=== PATIENT | male | born 1955 | race Caucasian/White ===

== ENCOUNTER → 2017-03-01 | Outpatient (CLI) | payer OTHER ==
[2017-03-01 18:52] LABS: CH 31.4; CHCM 34.2; HCT 39.8 % (39.0-53.0); HDW 2.55; HGB 13.4 gm/dL (13.0-17.5); MCH 31.1 pg (25.0-35.0); MCHC 33.7 g/dL (31.0-37.0); MCV 92.3 fL (80.0-100.0); RBC 4.31 m/uL (4.30-5.90); RDW 14.6 % (11.5-15.5); WBC 5.6 k/uL (3.8-10.6)
[2017-03-01 19:00] LABS: INR 1.2 (<1.2); Prothrombin Time 12.2 sec (9.0-12.0)
[2017-03-01 19:12] LABS: ALT 42 U/L (21-72); AST 30 U/L (17-59); Alkaline Phosphatase 64 U/L (38-126); Anion Gap 8 mmol/L; Blood Urea Nitrogen 34 mg/dL (9-20); Calcium 9.6 mg/dL (8.4-10.2); Carbon Dioxide 24 mmol/L (22-30); Chloride 108 mmol/L (98-107); Cholesterol 159 mg/dL (<200); Glucose 85 mg/dL (74-99); HDL Cholesterol 65 mg/dL (40-60); Iron 43 ug/dL (49-181); Magnesium 1.5 mg/dL (1.6-2.3); Non-African American GFR(MDRD) >60 (>60 ml/min/1.73 sqM); Phosphorus 4.4 mg/dL (2.5-4.5); Sodium 140 mmol/L (137-145); Total Bilirubin 0.4 mg/dL (0.2-1.3); Total Protein 6.5 g/dL (6.3-8.2)
[2017-03-01 19:19] LABS: Potassium 6.1 mmol/L (3.5-5.1)
[2017-03-01 19:20] LABS: % Iron Saturation 11.9 % (20-50); Total Iron Binding Capacity 361 ug/dL (261-462)
[2017-03-01 19:59] LABS: Vitamin B12 747 pg/mL (239-931)
[2017-03-01 20:39] LABS: Hemoglobin A1C 5.4 % (4.2-6.1)
[2017-03-08 18:31] LABS: Selenium 134 mcg/L (63-160)
--- NOTE | 2017-03-25 18:38 | P.PN ---
Progress Note - Text DATE OF SERVICE: 03/01/2017 REASON FOR CONSULTATION: Evaluation for panniculectomy. HISTORY OF PRESENT ILLNESS: Hector Gray is a 62-year-old gentleman who is status post sleeve gastrectomy [place] [address] Meza. His highest weight was 367 pounds. His lowest weight was 197.5. He has now gained weight 227 pounds. For his height of 5 foot 7-1/2 inches, his ideal body weight is 158 pounds. He has maintain 140 pound weight loss. He has gained 30 pounds from his lowest weight. No reports of gastroesophageal reflux disease taking omeprazole. He reports moderate troubles with his pannus despite prescription powders and creams. He avoids greasy food secondary to intolerance. Since he is 5 years out from his procedure, he is evaluating for a panniculectomy. PAST MEDICAL HISTORY: 1. Morbid obesity. 2. Body mass index of 56.8, initial 3. Obstructive sleep apnea. 4. Osteoarthritis of the knees, 5. Hypertensive heart disease. 6. Gastroesophageal reflux disease 7. Vitamin D deficiency. PAST SURGICAL HISTORY: 1. Sleeve gastrectomy, 05/2012. 2. Bilateral hip replacement. HOME MEDICATIONS: 1. Mobic. 2. Omeprazole. 3. Multivitamin. 4. Vitamin D. 5. Calcium. 6. Cetirizine ALLERGIES: 1. Denies. SOCIAL HISTORY: No active tobacco use. FAMILY HISTORY: No family history of ulcerative colitis disease or Crohn's disease. Has family history of colon cancer. REVIEW OF ORGAN SYSTEMS: CONSTITUTIONAL: His highest weight was 367 pounds. His lowest weight was 197.5. He has now gained weight 227 pounds. For his height of 5 foot 7-1/2 inches, his ideal body weight is 158 pounds. He has maintain 140 pound weight loss. He has gained 30 pounds from his lowest weight. Body mass index reduced from 56.8 down to 35.1. HEENT: Denies any active troubles with vision or hearing. No troubles with swallowing. ENDOCRINE: No diabetes. No hypothyroidism. CARDIOVASCULAR: No reports of palpitations or heart attacks or chest pain. RESPIRATORY: Has daytime somnolence including snoring and sleep apnea. No asthma. GI: Denies any bright red blood per rectum or constipation. Does have gastroesophageal reflux disease controlled with medications. MUSCULOSKELETAL: Has lower back pain and joint pain. Has osteoarthritis of the hips and knees. NEURO: No headaches. No seizure disorders. PSYCH: No depression. No suicidal ideation. RHEUMATOLOGIC: No lupus. No rheumatoid arthritis. HEMATOLOGIC: Denies any abnormal bleeding or bruising. No personal history of DVTs. SKIN: No rash except chronic panniculitis. No skin cancer. PHYSICAL EXAM: VITAL SIGNS: Height 5 foot 7.5 inches, weight 227 pounds. BMI 35.1 GENERAL: Well-developed male in no acute distress. HEENT: No scleral icterus. Extraocular movements grossly intact. Hears conversational speech. No nasal drainage. NECK: Supple without lymphadenopathy. CHEST: Nonlabored respirations with equal bilateral excursions. CARDIOVASCULAR: Regular rate. Distal 2+ pulses. ABDOMEN: Obese, soft, nontender, nondistended. Pannus hangs of the pubis by 6 cm. Weight of pannus between 10-15 pounds. Hyperemia consistent with panniculitis. MUSCULOSKELETAL: No clubbing, cyanosis, or edema. Gross strength 5/5 distal lower extremities. NEURO: No focal or lateralizing signs. Cranial nerves 2 through 12 grossly within normal limits. PSYCH: Appropriate affect. Alert and oriented to person, place and time. SKIN: Good skin turgor. Well perfused. ASSESSMENT: 1. Morbid obesity due to excess calories. 2. Body mass index of 56.8 down to 35.1. 3. Obstructive sleep apnea. 4. Osteoarthritis of the bilateral knees. 5. Status post sleeve gastrectomy. 6. Status post massive weight loss, 140 pounds. 7. Panniculitis. 8. Fatty food intolerance. PLAN: 1. Recommend full bariatric panel as he is more than 1 year out from his procedure. 2. Recommend correction of nutritional deficiencies prior to panniculectomy. 3. He has fatty food intolerance including symptoms highly suspicious for cholecystitis. Recommend right upper quadrant ultrasound. 4. Benefits and risks of panniculectomy including bleeding, infection, flap failure, cosmetic deformity, postop seromas, chronic pain, need for additional surgeries reviewed in detail. A panniculectomy fold was dispensed. 5. DVT prophylaxis. 6. Antibiotic prophylaxis. 7. Anticipated skin removal between 10-15 pounds hence require inpatient hospitalization anticipated for 2 nights. Thank you for this consultation. ADDENDUM: Elevated potassium. Recommend repeat. Recommend correction of our including magnesium. Laboratory Last Values WBC 5.6 k/uL (3.8-10.6) 03/01/17 18:10 RBC 4.31 m/uL (4.30-5.90) 03/01/17 18:10 Hgb 13.4 gm/dL (13.0-17.5) 03/01/17 18:10 Hct 39.8 % (39.0-53.0) 03/01/17 18:10 MCV 92.3 fL (80.0-100.0) 03/01/17 18:10 MCH 31.1 pg (25.0-35.0) 03/01/17 18:10 MCHC 33.7 g/dL (31.0-37.0) 03/01/17 18:10 RDW 14.6 % (11.5-15.5) 03/01/17 18:10 Plt Count 208 k/uL (150-450) 03/01/17 18:10 PT 12.2 sec (9.0-12.0) H 03/01/17 18:10 INR 1.2 (<1.2) H 03/01/17 18:10 APTT 23.0 sec (22.0-30.0) 03/01/17 18:10 Sodium 140 mmol/L (137-145) 03/01/17 18:10 Potassium 6.1 mmol/L (3.5-5.1) H 03/01/17 18:10 Chloride 108 mmol/L (98-107) H 03/01/17 18:10 Carbon Dioxide 24 mmol/L (22-30) 03/01/17 18:10 Anion Gap 8 mmol/L 03/01/17 18:10 BUN 34 mg/dL (9-20) H 03/01/17 18:10 Creatinine 0.80 mg/dL (0.66-1.25) 03/01/17 18:10 Est GFR (MDRD) Af Amer >60 (>60 ml/min/1.73 sqM) 03/01/17 18:10 Est GFR (MDRD) Non-Af >60 (>60 ml/min/1.73 sqM) 03/01/17 18:10 Glucose 85 mg/dL (74-99) 03/01/17 18:[address] Glu mg/dL 108 mg/dL 03/01/17 18:10 Hemoglobin A1c 5.4 % (4.2-6.1) 03/01/17 18:10 Calcium 9.6 mg/dL (8.4-10.2) 03/01/17 18:10 Phosphorus 4.4 mg/dL (2.5-4.5) 03/01/17 18:10 Magnesium 1.5 mg/dL (1.6-2.3) L 03/01/17 18:10 Iron 43 ug/dL (49-181) L 03/01/17 18:10 TIBC 361 ug/dL (261-462) 03/01/17 18:10 % Saturation 11.9 % (20-50) L 03/01/17 18:10 Ferritin 24.0 ng/mL (22.0-322.0) 03/01/17 18:10 Total Bilirubin 0.4 mg/dL (0.2-1.3) 03/01/17 18:10 AST 30 U/L (17-59) 03/01/17 18:10 ALT 42 U/L (21-72) 03/01/17 18:10 Alkaline Phosphatase 64 U/L (38-126) 03/01/17 18:10 Total Protein 6.5 g/dL (6.3-8.2) 03/01/17 18:10 Albumin 4.0 g/dL (3.5-5.0) 03/01/17 18:10 Prealbumin 28.0 mg/dL (18.0-42.0) 03/01/17 18:10 Triglycerides 54 mg/dL (<150) 03/01/17 18:10 Cholesterol 159 mg/dL (<200) 03/01/17 18:10 LDL Cholesterol, Calc 83 mg/dL (0-99) 03/01/17 18:10 HDL Cholesterol 65 mg/dL (40-60) H 03/01/17 18:10 Vitamin A 75 ug/dL (38-106) 03/01/17 18:10 Vitamin B1 96 ug/L (38-122) 03/01/17 18:10 Vitamin B12 747 pg/mL (239-931) 03/01/17 18:10 Vitamin D 25-Hydroxy 66.0 ng/mL (30.0-100.0) 03/01/17 18:10 Folate 16.1 ng/mL 03/01/17 18:10 TSH 0.562 mIU/L (0.465-4.680) 03/01/17 18:10 PTH Intact 47.7 pg/mL (14.0-72.0) 03/01/17 18:10 Copper 1003 ug/L (665-1480) 03/01/17 18:10 Selenium 134 mcg/L (63-160) 03/01/17 18:10 Zinc 90 ug/dL (60-130) 03/01/17 18:10
== END | disposition home or self-care (01) ==
LOC: BARWHC3 15:29
PROVIDERS: ATTEND Surgery Plastic and Reconstructive Surgery
DX: Z09 Encounter for follow-up examination after completed treatment for conditions other than malignant neoplasm (principal); E66.01 Morbid (severe) obesity due to excess calories; Z68.35 Body mass index [BMI] 35.0-35.9, adult; G47.33 Obstructive sleep apnea (adult) (pediatric); M17.0 Bilateral primary osteoarthritis of knee; M79.3 Panniculitis, unspecified; E55.9 Vitamin D deficiency, unspecified; K21.9 Gastro-esophageal reflux disease without esophagitis; Z79.1 Long term (current) use of non-steroidal anti-inflammatories (NSAID); Z79.899 Other long term (current) drug therapy; Z98.890 Other specified postprocedural states; Z98.84 Bariatric surgery status
CPT/HCPCS: 84255; 84134; 84425; 80061; 80053; 82607; 82728; 83036; 82525; 82746; 83540; 83550; 83735; 84100; 84443; 84590; 84630; 85027; 85610; 85730; 82306; 83970; G0463; 99211

== ENCOUNTER → 2017-03-06 | Outpatient (CLI) | payer OTHER ==
[2017-03-06 17:49] LABS: ALT 33 U/L (21-72); AST 23 U/L (17-59); Alkaline Phosphatase 66 U/L (38-126); Anion Gap 8 mmol/L; Blood Urea Nitrogen 36 mg/dL (9-20); Calcium 9.5 mg/dL (8.4-10.2); Carbon Dioxide 23 mmol/L (22-30); Chloride 110 mmol/L (98-107); Glucose 130 mg/dL (74-99); Non-African American GFR(MDRD) >60 (>60 ml/min/1.73 sqM); Potassium 4.6 mmol/L (3.5-5.1); Sodium 141 mmol/L (137-145); Total Bilirubin 0.2 mg/dL (0.2-1.3); Total Protein 6.3 g/dL (6.3-8.2)
== END | disposition home or self-care (01) ==
LOC: LABWHC1 17:03
PROVIDERS: ATTEND Surgery Plastic and Reconstructive Surgery
DX: E66.01 Morbid (severe) obesity due to excess calories (principal)
CPT/HCPCS: 36415; 80053

== ENCOUNTER 2017-03-16 07:36 | Day surgery (SDC) | payer OTHER ==
--- NOTE | 2017-03-16 06:08 | P.GSHP ---
History of Present Illness H&P Date: 03/16/17 CHIEF COMPLAINT: GERD HISTORY OF PRESENT ILLNESS: The patient is a 62-year-old male who presents reports gastroesophageal reflux disease. Upper endoscopy was offered for further evaluation and management. PAST MEDICAL HISTORY: Please see list. PAST SURGICAL HISTORY: Please see list. MEDICATIONS: Please see list. ALLERGIES: Please see list. SOCIAL HISTORY: No illicit drug use FAMILY HISTORY: No reports of Crohn disease or ulcerative colitis. REVIEW OF ORGAN SYSTEMS: CONSTITUTIONAL: No reports of fevers or chills. GI: Denies any blood in stools or constipation. PHYSICAL EXAM: VITAL SIGNS: Stable GENERAL: Well-developed and pleasant in no acute distress. HEENT: No scleral icterus. Extraocular movements grossly intact. Moist buccal mucosa. NECK: Supple without lymphadenopathy. CHEST: Unlabored respirations. Equal bilateral excursions. CARDIOVASCULAR: Regular rate and rhythm. Distal 2+ pulses. ABDOMEN: Soft, nondistended. MUSCULOSKELETAL: No clubbing, cyanosis, or edema. ASSESSMENT: 1. Gastroesophageal reflux disease PLAN: 1. Recommend proceeding with an upper endoscopy Past Medical History Past Medical History: Osteoarthritis (OA), Pulmonary Embolus (PE), Sleep Apnea/ CPAP/BIPAP Additional Past Medical History / Comment(s): Arthritis. CPAP. History of Any Multi-Drug Resistant Organisms: None Reported Past Surgical History: Bariatric Surgery, Joint Replacement Additional Past Surgical History / Comment(s): carla hip replacements, Gastris Sleeve Past Anesthesia/Blood Transfusion Reactions: No Reported Reaction Smoking Status: Former smoker - Past Family History Father Family Medical History: Cancer Additional Family Medical History / Comment(s): Colon Medications and Allergies Home Medications Medication Instructions Recorded Confirmed Type Calcium Citrate/Vitamin D3 1 each PO BID 12/10/13 03/14/17 History [Calcium Citrate - Vit D3 Tab] Cholecalciferol [Vitamin D3] 6,000 unit PO DAILY 12/10/13 03/14/17 History Gluc HCl/Ben/Mv/Min Aa/Hb 162 2 each PO DAILY 12/10/13 03/14/17 History [Glucosamine-Chondroitin Caplet] Multivitamins, Thera [Multivitamin] 1 each PO DAILY 12/10/13 03/14/17 History Vitamin B Complex 1 each PO DAILY 12/10/13 03/14/17 History Zinc 50 mg PO DAILY 03/02/17 03/14/17 History Cetirizine HCl 10 mg PO DAILY 03/14/17 03/14/17 History Meloxicam [Mobic] 15 mg PO DAILY 03/14/17 03/14/17 History Allergies Allergy/AdvReac Type Severity Reaction Status Date / Time No Known Allergies Allergy Verified 03/14/17 11:00
[~2017-03-16 07:36] MED LIST: LACTATED RINGERS 1,000 ML IV SCH
[2017-03-16 07:57] VITALS: RESP 16; TEMP 97.9
[2017-03-16] MEDS ORDERED: LIDOCAINE 1% 20 ML VIAL (10MG/ML) FOR IV START INTRADERMA ONE (08:05)
[2017-03-16] MEDS ORDERED: PROPOFOL 10 MG/ML 20 ML VIAL IV ONE (08:45)
[2017-03-16] MEDS ORDERED: LIDOCAINE 1% INJ 10MG/ML (20 ML MDV) ONE (08:45)
--- NOTE | 2017-03-16 09:01 | P.PCN ---
Date of Procedure: 03/16/17 Description of Procedure: PREOPERATIVE DIAGNOSIS: Status post sleeve gastrectomy. Gastroesophageal reflux disease. Epigastric abdominal pain. POSTOPERATIVE DIAGNOSIS: Status post sleeve gastrectomy. Gastroesophageal reflux disease. Epigastric abdominal pain. Diaphragmatic hiatal hernia without obstruction. Chronic superficial gastritis. OPERATION: Esophagogastroduodenoscopy with cold forceps biopsies along the antrum. SURGEON: Niya Duenas MD ANESTHESIA: MAC. INDICATIONS: The patient is a 62-year-old male who presents with a history of sleeve gastrectomy with abdominal pain. Benefits and risks of the procedure were described. Informed consent was obtained. DESCRIPTION: The patient was brought into the endoscopy suite and laid in the left lateral decubitus position. An Olympus gastroscope was passed along the posterior oropharynx down to the distal esophagus where the squamocolumnar junction was at 35 centimeters from the incisors remarkable for chronic erosive esophagitis, LA grade B without ulceration. The stomach was entered where he had a 3-cm hiatal hernia with a diaphragmatic hiatus found at 38 cm. The sleeve reservoir and narrowing along the angularis incisura. Chronic gastritis was found along the antrum with cold biopsies obtained. The first through third portion of the duodenum was examined and unremarkable. The scope had easily retroflexed along the antrum and fairly snug within the sleeve. The stomach was desufflated. The patient tolerated the procedure well. FINDINGS: No acute ulceration found along sleeve. Corkscrewing along proximal sleeve gastrectomy from diaphragmatic hiatal hernia. Narrowing along angularis incisura. Squamocolumnar junction at 35 cm from the incisors. Diaphragmatic hiatus at 38 cm. Hiatal hernia 3 cm, fixed. LA grade B erosive esophagitis. No active duodenitis. Chronic gastritis. RECOMMENDATIONS: Upper endoscopy as needed. Plan - Discharge Summary New Discharge Prescriptions: No Action Calcium Citrate/Vitamin D3 [Calcium Citrate - Vit D3 Tab] 1 each PO BID Gluc HCl/Ben/Mv/Min Aa/Hb 162 [Glucosamine-Chondroitin Caplet] 2 each PO DAILY Multivitamins, Thera [Multivitamin] 1 each PO DAILY Vitamin B Complex 1 each PO DAILY Cholecalciferol [Vitamin D3] 6,000 unit PO DAILY Zinc 50 mg PO DAILY Meloxicam [Mobic] 15 mg PO DAILY Cetirizine HCl 10 mg PO DAILY Discharge Medication List Calcium Citrate/Vitamin D3 [Calcium Citrate - Vit D3 Tab] 1 each PO BID [History] Cholecalciferol [Vitamin D3] 6,000 unit PO DAILY 12/10/13 [History] Gluc HCl/Ben/Mv/Min Aa/Hb 162 [Glucosamine-Chondroitin Caplet] 2 each PO DAILY 12/10/13 [History] Multivitamins, Thera [Multivitamin] 1 each PO DAILY 12/10/13 [History] Vitamin B Complex 1 each PO DAILY 12/10/13 [History] Zinc 50 mg PO DAILY 03/02/17 [History] Cetirizine HCl 10 mg PO DAILY 03/14/17 [History] Meloxicam [Mobic] 15 mg PO DAILY 03/14/17 [History]
[2017-03-16 09:15] VITALS: BP 107/73; PULSE 63
== END 2017-03-16 09:43 | disposition home or self-care (01) ==
LOC: ORWHC2ENDO 07:36
PROVIDERS: ATTEND Surgery Plastic and Reconstructive Surgery
DX: K29.30 Chronic superficial gastritis without bleeding (principal); K21.9 Gastro-esophageal reflux disease without esophagitis; K22.10 Ulcer of esophagus without bleeding; K44.9 Diaphragmatic hernia without obstruction or gangrene; Z98.84 Bariatric surgery status; M19.90 Unspecified osteoarthritis, unspecified site; Z86.711 Personal history of pulmonary embolism; G47.33 Obstructive sleep apnea (adult) (pediatric); Z99.89 Dependence on other enabling machines and devices; Z87.891 Personal history of nicotine dependence; Z79.1 Long term (current) use of non-steroidal anti-inflammatories (NSAID)
CPT/HCPCS: 88305; 88342; 43239; J2001; J2704

== ENCOUNTER → 2017-04-27 | Outpatient (CLI) | payer OTHER ==
[2017-04-27 10:19] VITALS: BP 131/87; PULSE 80; TEMP 98.4; BMI 35.0
--- NOTE | 2017-06-26 17:27 | P.PN ---
Subjective Progress Note Date: 04/27/17 DATE OF SERVICE: 04/27/2017 REASON FOR VISIT: Follow-up sleeve gastrectomy. HISTORY OF PRESENT ILLNESS: Hector Gray is a 62-year-old gentleman who is status post sleeve gast[place] [address] Meza. His highest weight was 367 pounds. His lowest weight was 197.5. Today he comes in weighing 227 pounds. For his height of 5 foot 7-1/2 inches, his ideal body weight is 158 pounds. He has maintain 140 pound weight loss. He reports moderate skin problems since she is presenting for panniculitis. Reports gas receptors disease. Separately, he completed upper endoscopy demonstrating a symptomatic hiatal hernia. He presents for further evaluation and management. PAST MEDICAL HISTORY: 1. Morbid obesity. 2. Body mass index of 56.8, initial 3. Obstructive sleep apnea. 4. Osteoarthritis of the knees, 5. Hypertensive heart disease. 6. Gastroesophageal reflux disease 7. Vitamin D deficiency. PAST SURGICAL HISTORY: 1. Sleeve gastrectomy, 05/2012. 2. Bilateral hip replacement. HOME MEDICATIONS: 1. Mobic. 2. Omeprazole. 3. Multivitamin. 4. Vitamin D. 5. Calcium. 6. Cetirizine ALLERGIES: 1. Denies. SOCIAL HISTORY: No active tobacco use. FAMILY HISTORY: No family history of ulcerative colitis disease or Crohn's disease. Has family history of colon cancer. REVIEW OF ORGAN SYSTEMS: CONSTITUTIONAL: His highest weight was 367 pounds. His lowest weight was 197.5. For his height of 5 foot 7-1/2 inches, his ideal body weight is 158 pounds. He has maintain 140 pound weight loss. He has gained 29 pounds from his lowest weight. Body mass index reduced from 56.8 down to 35.1. HEENT: Denies any active troubles with vision or hearing. No troubles with swallowing. ENDOCRINE: No diabetes. No hypothyroidism. CARDIOVASCULAR: No reports of palpitations or heart attacks or chest pain. RESPIRATORY: Has daytime somnolence including snoring and sleep apnea. No asthma. GI: Denies any bright red blood per rectum or constipation. Does have gastroesophageal reflux disease controlled with medications. MUSCULOSKELETAL: Has lower back pain and joint pain. Has osteoarthritis of the hips and knees. NEURO: No headaches. No seizure disorders. PSYCH: No depression. No suicidal ideation. RHEUMATOLOGIC: No lupus. No rheumatoid arthritis. HEMATOLOGIC: Denies any abnormal bleeding or bruising. No personal history of DVTs. SKIN: No rash except chronic panniculitis. No skin cancer. PHYSICAL EXAM: VITAL SIGNS: Height 5 foot 7.5 inches, weight 227 pounds. BMI 35.1 GENERAL: Well-developed male in no acute distress. HEENT: No scleral icterus. Extraocular movements grossly intact. Hears conversational speech. No nasal drainage. NECK: Supple without lymphadenopathy. CHEST: Nonlabored respirations with equal bilateral excursions. CARDIOVASCULAR: Regular rate. Distal 2+ pulses. ABDOMEN: Obese, soft, nontender, nondistended. Pannus hangs of the pubis by 6 cm. Weight of pannus between 10-15 pounds. Hyperemia consistent with panniculitis. MUSCULOSKELETAL: No clubbing, cyanosis, or edema. Gross strength 5/5 distal lower extremities. NEURO: No focal or lateralizing signs. Cranial nerves 2 through 12 grossly within normal limits. PSYCH: Appropriate affect. Alert and oriented to person, place and time. SKIN: Good skin turgor. Well perfused. EGD FINDINGS: No acute ulceration found along sleeve. Corkscrewing along proximal sleeve gastrectomy from diaphragmatic hiatal hernia. Narrowing along angularis incisura. Squamocolumnar junction at 35 cm from the incisors. Diaphragmatic hiatus at 38 cm. Hiatal hernia 3 cm, fixed. LA grade B erosive esophagitis. No active duodenitis. Chronic gastritis. Final Pathologic Diagnosis STOMACH, BIOPSY: FOCAL MILD CHRONIC ACTIVE GASTRITIS. HELICOBACTER IMMUNOPEROXIDASE STAIN IS PERFORMED TO EVALUATE FOR HELICOBACTER ORGANISMS AND IS NEGATIVE (CONTROLS APPROPRIATE). ASSESSMENT: 1. Morbid obesity due to excess calories. 2. Body mass index of 56.8 down to 35.1. 3. Obstructive sleep apnea. 4. Osteoarthritis of the bilateral knees. 5. Status post sleeve gastrectomy. 6. Status post massive weight loss, 140 pounds. 7. Panniculitis. 8. Fatty food intolerance. 9. Symptomatic diaphragmatic hiatal hernia. 10. Complications from previous bariatric procedure with corkscrewing of the sleeve. 11. Iron deficiency. 12. Magnesium deficiency. PLAN: 1. Recommend iron supplementation. 2. Recommend magnesium supplementation. 3. He has symptomatic diaphragmatic hernia. Recommend surgical correction with a robot-assisted laparoscopic hiatal hernia repair with mesh. 4. Inpatient hospitalization approximately 2 nights advised. 5. DVT prophylaxis. 6. Antibiotic prophylaxis. 7. Will need at least 4 weeks post recovery. 8. For his panniculitis, may benefit panniculectomy in the future. Objective - Vital Signs Vital signs: Vital Signs Temp 98.4 F 04/27/17 10:14 Pulse 80 04/27/17 10:14 Resp BP 131/87 04/27/17 10:14 Pulse Ox Intake & Output 04/26/17 04/27/17 04/27/17 18:59 06:59 18:59 Weight 103.102 kg
== END | disposition home or self-care (01) ==
LOC: BARWHC3 09:57
PROVIDERS: ATTEND Surgery Plastic and Reconstructive Surgery
DX: Z09 Encounter for follow-up examination after completed treatment for conditions other than malignant neoplasm (principal); E66.01 Morbid (severe) obesity due to excess calories; G47.33 Obstructive sleep apnea (adult) (pediatric); M17.0 Bilateral primary osteoarthritis of knee; M79.3 Panniculitis, unspecified; K90.49 Malabsorption due to intolerance, not elsewhere classified; K44.9 Diaphragmatic hernia without obstruction or gangrene; K21.9 Gastro-esophageal reflux disease without esophagitis; E61.1 Iron deficiency; E61.2 Magnesium deficiency; Z68.35 Body mass index [BMI] 35.0-35.9, adult; Z98.84 Bariatric surgery status; Z79.1 Long term (current) use of non-steroidal anti-inflammatories (NSAID); Z79.899 Other long term (current) drug therapy
CPT/HCPCS: 99211

== ENCOUNTER → 2017-06-16 | Outpatient (CLI) | payer OTHER ==
[2017-06-17 14:13] LABS: Basophils # (A) 0.1 k/uL (0-0.2); Basophils % (A) 1 %; CH 29.6; CHCM 31.8; Eosinophils # (A) 0.2 k/uL (0-0.7); Eosinophils % (A) 3 %; HCT 44.2 % (39.0-53.0); HDW 2.35; HGB 14.3 gm/dL (13.0-17.5); Luc # (Auto) 0.12; Luc % (Auto) 2; Lymphocytes # (A) 1.7 k/uL (1.0-4.8); Lymphocytes % (A) 26 %; MCH 30.3 pg (25.0-35.0); MCHC 32.5 g/dL (31.0-37.0); MCV 93.3 fL (80.0-100.0); Mean Platelet Volume 8.4; Monocytes # (A) 0.4 k/uL (0-1.0); Monocytes % (A) 6 %; Neutrophils # (A) 4.2 k/uL (1.3-7.7); Neutrophils % (A) 63 %; RBC 4.73 m/uL (4.30-5.90); WBC 6.7 k/uL (3.8-10.6); WBC (Perox) 7.05
[2017-06-17 15:21] LABS: ALT 40 U/L (21-72); AST 31 U/L (17-59); Alkaline Phosphatase 74 U/L (38-126); Anion Gap 13 mmol/L; Blood Urea Nitrogen 44 mg/dL (9-20); Calcium 10.1 mg/dL (8.4-10.2); Carbon Dioxide 22 mmol/L (22-30); Chloride 110 mmol/L (98-107); Glucose 118 mg/dL (74-99); Non-African American GFR(MDRD) >60 (>60 ml/min/1.73 sqM); Sodium 145 mmol/L (137-145); Total Bilirubin 0.3 mg/dL (0.2-1.3); Total Protein 6.9 g/dL (6.3-8.2)
== END | disposition home or self-care (01) ==
LOC: LABPAT 10:47
PROVIDERS: ATTEND Surgery Plastic and Reconstructive Surgery
DX: Z01.818 Encounter for other preprocedural examination (principal); Z01.812 Encounter for preprocedural laboratory examination
CPT/HCPCS: 36415; 80053; 85025; 93005

== ENCOUNTER 2017-07-03 05:58 | Day surgery (SDC) | payer OTHER ==
--- NOTE | 2017-07-03 05:54 | P.GSHP ---
History of Present Illness H&P Date: 07/03/17 CHIEF COMPLAINT: Gastroesophageal reflux disease. HISTORY OF PRESENT ILLNESS: Hector Gray is a 62-year-old gentleman who is status post sleeve gastrectomy in 2011. His highest weight was 367 pounds. His lowest weight was 197.5. Today he comes in weighing 230 pounds. For his height of 5 foot 7-1/2 inches, his ideal body weight is 158 pounds. He has maintain 137 pound weight loss. He reports gastroesophageal reflux disease. Separately, he completed upper endoscopy demonstrating a symptomatic hiatal hernia. He presents for further evaluation and management. PAST MEDICAL HISTORY: 1. Morbid obesity. 2. Body mass index of 56.8, initial 3. Obstructive sleep apnea. 4. Osteoarthritis of the knees, 5. Hypertensive heart disease. 6. Gastroesophageal reflux disease 7. Vitamin D deficiency. PAST SURGICAL HISTORY: 1. Sleeve gastrectomy, 05/2012. 2. Bilateral hip replacement. HOME MEDICATIONS: 1. Mobic. 2. Omeprazole. 3. Multivitamin. 4. Vitamin D. 5. Calcium. 6. Cetirizine ALLERGIES: 1. Denies. SOCIAL HISTORY: No active tobacco use. FAMILY HISTORY: No family history of ulcerative colitis disease or Crohn's disease. Has family history of colon cancer. REVIEW OF ORGAN SYSTEMS: CONSTITUTIONAL: His highest weight was 367 pounds. His lowest weight was 197.5. For his height of 5 foot 7-1/2 inches, his ideal body weight is 158 pounds. He has maintain 138 pound weight loss. Body mass index reduced from 56.8 down to 35.3. HEENT: Denies any active troubles with vision or hearing. No troubles with swallowing. ENDOCRINE: No diabetes. No hypothyroidism. CARDIOVASCULAR: No reports of palpitations or heart attacks or chest pain. RESPIRATORY: Has daytime somnolence including snoring and sleep apnea. No asthma. GI: Denies any bright red blood per rectum or constipation. Does have gastroesophageal reflux disease. MUSCULOSKELETAL: Has lower back pain and joint pain. Has osteoarthritis of the hips and knees. NEURO: No headaches. No seizure disorders. PSYCH: No depression. No suicidal ideation. RHEUMATOLOGIC: No lupus. No rheumatoid arthritis. HEMATOLOGIC: Denies any abnormal bleeding or bruising. No personal history of DVTs. SKIN: No rash except chronic panniculitis. No skin cancer. PHYSICAL EXAM: VITAL SIGNS: Height 5 foot 7.5 inches, weight 230 pounds. BMI 35.3 GENERAL: Well-developed male in no acute distress. HEENT: No scleral icterus. Extraocular movements grossly intact. Hears conversational speech. No nasal drainage. NECK: Supple without lymphadenopathy. CHEST: Nonlabored respirations with equal bilateral excursions. CARDIOVASCULAR: Regular rate. Distal 2+ pulses. ABDOMEN: Obese, soft, nontender, nondistended. MUSCULOSKELETAL: No clubbing, cyanosis, or edema. Gross strength 5/5 distal lower extremities. NEURO: No focal or lateralizing signs. Cranial nerves 2 through 12 grossly within normal limits. PSYCH: Appropriate affect. Alert and oriented to person, place and time. SKIN: Good skin turgor. Well perfused. EGD FINDINGS: No acute ulceration found along sleeve. Corkscrewing along proximal sleeve gastrectomy from diaphragmatic hiatal hernia. Narrowing along angularis incisura. Squamocolumnar junction at 35 cm from the incisors. Diaphragmatic hiatus at 38 cm. Hiatal hernia 3 cm, fixed. LA grade B erosive esophagitis. No active duodenitis. Chronic gastritis. ASSESSMENT: 1. Morbid obesity due to excess calories. 2. Body mass index of 56.8 down to 35.1. 3. Obstructive sleep apnea. 4. Osteoarthritis of the bilateral knees. 5. Status post sleeve gastrectomy. 6. Status post massive weight loss, 140 pounds. 7. Panniculitis. 8. Fatty food intolerance. 9. Symptomatic diaphragmatic hiatal hernia. 10. Complications from previous bariatric procedure with corkscrewing of the sleeve. 11. Iron deficiency. 12. Magnesium deficiency. PLAN: 1. He has symptomatic diaphragmatic hernia. Recommend surgical correction with a robot-assisted laparoscopic hiatal hernia repair with mesh. 2. Inpatient hospitalization approximately 2 nights advised. 3. DVT prophylaxis. 4. Antibiotic prophylaxis. Past Medical History Past Medical History: GERD/Reflux, Osteoarthritis (OA), Pulmonary Embolus (PE), Sleep Apnea/CPAP/BIPAP Additional Past Medical History / Comment(s): hiatal Hernia,Arthritis,CPAP,PE 1990s History of Any Multi-Drug Resistant Organisms: None Reported Past Surgical History: Bariatric Surgery, Joint Replacement Additional Past Surgical History / Comment(s): carla hip replacements, Gastric Sleeve Past Anesthesia/Blood Transfusion Reactions: No Reported Reaction Additional Past Anesthesia/Blood Transfusion Reaction / Comment(s): no hx blood transfusion Smoking Status: Former smoker - Past Family History Father Family Medical History: Cancer Additional Family Medical History / Comment(s): Colon Medications and Allergies Home Medications Medication Instructions Recorded Confirmed Type Calcium Citrate/Vitamin D3 1 each PO BID 12/10/13 06/20/17 History [Calcium Citrate - Vit D3 Tab] Cholecalciferol [Vitamin D3] 6,000 unit PO DAILY 12/10/13 06/20/17 History Gluc HCl/Ben/Mv/Min Aa/Hb 162 2 each PO DAILY 12/10/13 06/20/17 History [Glucosamine-Chondroitin Caplet] Multivitamins, Thera [Multivitamin] 1 each PO DAILY 12/10/13 06/20/17 History Vitamin B Complex 1 each PO DAILY 12/10/13 06/20/17 History Zinc 50 mg PO DAILY 03/02/17 06/20/17 History Cetirizine HCl 10 mg PO DAILY 03/14/17 06/20/17 History Meloxicam [Mobic] 15 mg PO DAILY 03/14/17 06/20/17 History Omeprazole 40 mg PO QAM 06/20/17 06/20/17 History Allergies Allergy/AdvReac Type Severity Reaction Status Date / Time No Known Allergies Allergy Verified 06/20/17 14:20
[~2017-07-03 05:58] MED LIST changes: +DEXAMETHASONE SOD PHOSPHATE 10 MG/ML 1 ML VIAL IV ONE; -LACTATED RINGERS 1,000 ML IV SCH; +LIDOCAINE 1% 20 ML VIAL (10MG/ML) FOR IV START INTRADERMA PRN; +ONDANSETRON 4 MG/2 ML VIAL IVP ONE; +SCOPOLAMINE 1.5MG/72HR PATCH TRANSDERM ONE; +ceFAZolin IN SWFI 2 GM/20 ML SYRINGE IVP ONE
[2017-07-03] MEDS ORDERED: PANTOPRAZOLE 40 MG/10 ML VIAL IV STA (06:05)
[2017-07-03] MEDS ORDERED: ENOXAPARIN 40 MG/0.4 ML SYRINGE SQ STA (06:05)
[2017-07-03] MEDS ORDERED: CHLORHEXIDINE GLUCONATE 15 ML CUP MUCOUS MEM ONE (06:05)
[2017-07-03] MEDS: LACTATED RINGERS 1,000 ML IV SCH ×2 (06:29→06:38)
[2017-07-03] MEDS ORDERED: MAGNESIUM SULFATE 4 MEQ/ML 2 ML VIAL ONE (07:28)
[2017-07-03] MEDS ORDERED: NEOSTIGMINE 1 MG/ML 10 ML VIAL ONE (07:28)
[2017-07-03] MEDS ORDERED: PHENYLEPHRINE-0.9% NACL SYG 1 MG/10 ML SYRINGE ONE (07:28)
[2017-07-03] MEDS ORDERED: LIDOCAINE 1% INJ 10MG/ML (20 ML MDV) ONE (07:28)
[2017-07-03] MEDS ORDERED: MIDAZOLAM 2 MG/2 ML VIAL ONE (07:28)
[2017-07-03] MEDS ORDERED: SUCCINYLCHOLINE CHLORIDE 100 MG/5 ML SYR IV ONE (07:28)
[2017-07-03] MEDS ORDERED: ePHEDrine SULFATE/0.9% NACL/PF 50 MG/5 ML SYRINGE IV ONE (07:28)
[2017-07-03] MEDS ORDERED: HYDROmorphone (PF) 1 MG/ML ONE (07:28)
[2017-07-03] MEDS ORDERED: PROPOFOL 10 MG/ML 20 ML VIAL IV ONE (07:28)
[2017-07-03] MEDS ORDERED: fentaNYL (PF) 50 MCG/ML 2 ML AMP ONE (07:28)
[2017-07-03] MEDS ORDERED: ROCURONIUM BROMIDE 10 MG/ML 10 ML VIAL IV ONE (07:28)
[2017-07-03] MEDS ORDERED: GLYCOPYRROLATE 0.2 MG/ML 2 ML VIAL ONE (07:28)
[2017-07-03] MEDS ORDERED: BUPIVACAINE (PF) 0.25% 30 ML VIAL SQ ONE (08:02)
[2017-07-03] MEDS ORDERED: LACTATED RINGERS 1,000 ML IV ONE ×3 (09:56→10:53)
[2017-07-03] MEDS ORDERED: HYDROmorphone 2 MG/ML 1 ML SYRINGE IVP PRN (10:53)
[2017-07-03] MEDS ORDERED: ONDANSETRON 4 MG/2 ML VIAL IVP PRN (10:53)
[2017-07-03] MEDS ORDERED: NALOXONE 0.4 MG/ML 1 ML VIAL IV PRN (10:53)
[2017-07-03] MEDS ORDERED: HYDROmorphone 2 MG/ML 1 ML SYRINGE IV PRN (10:53)
--- NOTE | 2017-07-03 10:57 | P.PCN ---
Date of Procedure: 07/03/17 Preoperative Diagnosis: Hiatal hernia, epigastric abdominal pain Postoperative Diagnosis: Same, incarcerated para-subcu midline hiatal hernia 5 x 4 cm Procedure(s) Performed: Robotic-assisted laparoscopic reduction repair of incarcerated midline paraesophageal hiatal hernia 5 x 4 cm with placement of mesh, intraoperative EGD , resection of mediastinal tumor retroesophageal Anesthesia: ELLA Surgeon: Niya Duenas Estimated Blood Loss (ml): 20 Pathology: other (Mediastinal tumor, hiatal hernia sac) Condition: stable Disposition: floor Operative Findings: Thoracic length 19.5 cm, 56-[place] bougie appropriate, reduction of incarcerated 5 cm superior pole of stomach from previously gastrectomy, confirm gastric stenosis along sleeve gastrectomy after repair, GE junction at 40 cm from the incisors
[2017-07-03] MEDS: HYDROmorphone 0.5 MG/0.5 ML SYRINGE IVP PRN ×2 (11:45→11:50)
[2017-07-03] MEDS ORDERED: KETOROLAC 30 MG/ML 1 ML VIAL IVP ONE (11:55)
--- NOTE | 2017-07-03 14:30 | FL ---
EXAMINATION TYPE: FL esophagus cervic/pharynx DATE OF EXAM: 07/03/2017 HISTORY: Post hiatal hernia repair COMPARISON: NONE TECHNIQUE: Single contrast performed with ingestion of Omnipaque 350. FINDINGS: There are tertiary contractions of esophagus and mild to moderate delay. No obvious extravasation. Sm all amount of free air likely is immediate postsurgical. IMPRESSION: Mild to moderate delay at the GE junction with the contrast eventually demonstrate near- complete spilling into the stomach.
[2017-07-03 14:34] VITALS: BMI 34.3
[2017-07-03] MEDS: MAGNESIUM SULFATE-D5W PMX 1 GM in DEXTROSE/WATER 1 100ML.BAG IVPB SCH ×4 (14:41→22:52)
[2017-07-03] MEDS: SIMETHICONE 40 MG/0.6 ML DROPS 2,000 MG/30 ML BOTTLE PO SCH ×2 (14:48→17:38)
[2017-07-03] MEDS: HYOSCYAMINE ORAL DROPS 1.875 MG/15 ML BOTTLE PO SCH ×2 (14:50→17:37)
[2017-07-03] MEDS: ceFAZolin IN SWFI 2 GM/20 ML SYRINGE IVP SCH (14:53)
[2017-07-03 15:41] VITALS: RESP 16
[2017-07-03] MEDS: 0.9% NACL WITH KCL 20 MEQ/L 1,000 ML IV SCH (16:22)
[2017-07-03] MEDS: HYDROcodone/APAP 15 ML SOLUTION PO PRN (19:51)
[2017-07-03] MEDS ORDERED: DEXAMETHASONE SOD PHOSPHATE 10 MG/ML 1 ML VIAL IV STA (20:50)
--- NOTE | 2017-07-03 21:14 | P.PN ---
Progress Note - Text Progress Note Date: 07/03/17 Patient seen and evaluated this evening. No reports of dysphagia. He is resting comfortable. He has extremely low magnesium with initial tachycardia in the operating room. Additionally, he completed his esophagram. I personally reviewed his esophagram. Intraoperative findings included incarcerated 5 cm of his upper stomach was described. Patient may be discharged home on bariatric full liquid diet. Follow-up the bariatric center in 48-72 hours, .
[2017-07-03] MEDS: METOCLOPRAMIDE 5 MG/ML 2 ML VIAL IVP SCH (21:31)
[2017-07-03 23:42] VITALS: TEMP 97.7
[2017-07-04] MEDS: ceFAZolin IN SWFI 2 GM/20 ML SYRINGE IVP SCH
[2017-07-04] MEDS: HYOSCYAMINE ORAL DROPS 1.875 MG/15 ML BOTTLE PO SCH ×2 (00:23→05:40)
[2017-07-04] MEDS: SIMETHICONE 40 MG/0.6 ML DROPS 2,000 MG/30 ML BOTTLE PO SCH ×2 (00:24→05:41)
[2017-07-04] MEDS: 0.9% NACL WITH KCL 20 MEQ/L 1,000 ML IV SCH ×2 (01:12→05:30)
[2017-07-04] MEDS: METOCLOPRAMIDE 5 MG/ML 2 ML VIAL IVP SCH ×2 (03:30→09:42)
[2017-07-04 07:22] VITALS: BP 112/63; PULSE 80
[2017-07-04 07:54] LABS: Basophils % (A) 0 %; Eosinophils % (A) 0 %; HCT 42.3 % (39.0-53.0); HGB 13.6 gm/dL (13.0-17.5); Lymphocytes # (A) 0.7 k/uL (1.0-4.8); Lymphocytes % (A) 11 %; MCH 30.2 pg (25.0-35.0); MCHC 32.1 g/dL (31.0-37.0); Mean Platelet Volume 7.5; Monocytes # (A) 0.3 k/uL (0-1.0); Monocytes % (A) 5 %; Neutrophils # (A) 5.3 k/uL (1.3-7.7); Neutrophils % (A) 84 %; Platelet Count 191 k/uL (150-450); RDW 14.3 % (11.5-15.5); WBC 6.4 k/uL (3.8-10.6)
[2017-07-04 08:29] LABS: Anion Gap 7 mmol/L; Blood Urea Nitrogen 14 mg/dL (9-20); Calcium 9.5 mg/dL (8.4-10.2); Carbon Dioxide 27 mmol/L (22-30); Chloride 107 mmol/L (98-107); Magnesium 1.7 mg/dL (1.6-2.3); Phosphorus 3.2 mg/dL (2.5-4.5); Potassium 4.9 mmol/L (3.5-5.1); Sodium 141 mmol/L (137-145)
[2017-07-04] MEDS ORDERED: ENOXAPARIN 40 MG/0.4 ML SYRINGE SQ SCH (09:00)
[2017-07-04] MEDS: HYDROcodone/APAP 15 ML SOLUTION PO PRN (09:41)
--- NOTE | 2017-07-04 10:42 | P.PN ---
Progress Note - Text Progress Note Date: 07/04/17 Patient denies any complaints this morning. Pain is well controlled. Discharge medications reviewed. Labs reviewed. Medical reconciliation performed. Post hiatal hernia diet reviewed. Patient is cleared for discharge with follow-up in 48 hrs at bariatric center.
--- NOTE | 2017-07-04 11:31 | P.DS ---
<Kaylyn Sheridan - Last Filed: 07/04/17 11:24> Providers Expected date of discharge: 07/04/17 Attending physician: Niya Duenas Primary care physician: Stated None Hospital Course: A 62-year-old gentleman 62-year-was status post sleeve gastrectomy for morbid obesity done in 2011. Weight loss of 137 pounds. Reports having gastroesophageal reflux symptoms. Patient did have an EGD did show symptomatic hiatal hernia. Subsequently the patient presented to undergo Robotic-assisted laparoscopic reduction repair of incarcerated midline paraesophageal hiatal hernia 5 x 4 cm with placement of mesh, intraoperative EGD, resection of mediastinal tumor retroesophageal postop there were no events. Patient was up ambulatory on the unit. Stated pain medication effective for pain control. Surgical sites no redness. Dressings dry. Abdomen soft not distended. White count 6.4 hemoglobin 13.6 October 1.7 potassium 4.9 patient was felt to be hemodynamically stable and appropriate to proceed with a discharge to home Impression discharge diagnosis Hiatal hernia Epigastric abdominal pain Incarcerated para-subcu midline hiatal hernia 5 x 4 cm Robotic-assisted laparoscopic reduction repair of incarcerated midline paraesophageal hiatal hernia 5 x 4 cm with placement of mesh, intraoperative EGD , resection of mediastinal tumor retroesophageal Vitamin D deficiency Hypertensive heart disease Obstructive sleep apnea Initial BMI 56 now 34.3 Sleeve gastrectomy May 2012 Osteoarthritis bilateral knees The above impression and plan of care have been discussed and directed by signing physician. Kaylyn Sheridan nurse practitioner acting as scribe for signing physician. Patient Condition at Discharge: Stable Plan - Discharge Summary Discharge Rx Participant: Yes New Discharge Prescriptions: New HYDROcodone/APAP [[place] Elixir 7.5-325Mg/15Ml] 15 ml PO Q6HR PRN #300 ml PRN Reason: Pain Continue Calcium Citrate/Vitamin D3 [Calcium Citrate - Vit D3 Tab] 1 each PO BID Gluc HCl/Ben/Mv/Min Aa/Hb 162 [Glucosamine-Chondroitin Caplet] 2 each PO DAILY Multivitamins, Thera [Multivitamin (formulary)] 1 each PO DAILY Vitamin B Complex 1 each PO DAILY Cholecalciferol [Vitamin D3] 6,000 unit PO DAILY Zinc 50 mg PO DAILY Meloxicam [Mobic] 15 mg PO DAILY Cetirizine HCl 10 mg PO DAILY Discontinued Omeprazole 40 mg PO QAM Discharge Medication List Calcium Citrate/Vitamin D3 [Calcium Citrate - Vit D3 Tab] 1 each PO BID [History] Cholecalciferol [Vitamin D3] 6,000 unit PO DAILY 12/10/13 [History] Gluc HCl/Ben/Mv/Min Aa/Hb 162 [Glucosamine-Chondroitin Caplet] 2 each PO DAILY 12/10/13 [History] Multivitamins, Thera [Multivitamin (formulary)] 1 each PO DAILY 12/10/13 [ History] Vitamin B Complex 1 each PO DAILY 12/10/13 [History] Zinc 50 mg PO DAILY 03/02/17 [History] Cetirizine HCl 10 mg PO DAILY 03/14/17 [History] Meloxicam [Mobic] 15 mg PO DAILY 03/14/17 [History] HYDROcodone/APAP [[place] Elixir 7.5-325Mg/15Ml] 15 ml PO Q6HR PRN #300 ml [Rx] Follow up Appointment(s)/Referral(s): Bariatric Center,. [NON-STAFF] - 07/06/17 9:30 am Patient Instructions/Handouts: Nutrition after Bariatric Surgery (GEN), Laparoscopic Hiatal Hernia Repair (DC) Activity/Diet/Wound Care/Special Instructions: No lifting over 4 pounds in 4 weeks. Protein shakes 75 to 80 grams daily until seen in the office. No solid foods. Please crush all medications. Discharge Disposition: HOME SELF-CARE <Niya Duenas N - Last Filed: 07/04/17 18:50> - Discharge Diagnosis(es) (1) Incarcerated paraesophageal hernia Status: Acute (2) Reflux esophagitis Status: Acute (3) History of sleeve gastrectomy Status: Acute (4) Hypomagnesemia Status: Acute (5) Morbid obesity due to excess calories Status: Acute (6) BMI 35.0-35.9,adult Status: Acute (7) Mediastinal tumor Status: Acute (8) Gastroesophageal reflux disease Status: Acute (9) Panniculitis Status: Acute Pertinent Studies: Esophagram negative for leaks. Procedures: Robotic-assisted laparoscopic reduction repair of incarcerated midline paraesophageal hiatal hernia 5 x 4 cm with placement of mesh, intraoperative EGD , resection of mediastinal tumor retroesophageal
--- NOTE | 2017-07-05 10:58 | P.OP ---
Date of Procedure: 07/03/17 Description of Procedure: Operative Findings: DESCRIPTION OF PROCEDURE(S): SURGEON: CHAI MATOS MD MOLDED FRAMES ASSEMBLER: 1. Edwar San PREOPERATIVE DIAGNOSES: 1. Gastroesophageal reflux disease. 2. Paraesophageal hiatal hernia, midline. 3. Morbid obesity due to excess calories, BMI of 35. 4. Panniculitis. 5. Epigastric abdominal pain. 6. History of sleeve gastrectomy. 7. Chronic hypomagnesia. 8. History of supraventricular tachycardia. 9. History of sleep apnea. POSTOPERATIVE DIAGNOSES: 1. Gastroesophageal reflux disease. 2. Paraesophageal incarcerated hiatal hernia, midline, 5 x 4 cm 3. Morbid obesity due to excess calories, BMI of 35. 4. Panniculitis. 5. Epigastric abdominal pain. 6. History of sleeve gastrectomy. 7. Chronic hypomagnesia. 8. History of supraventricular tachycardia. 9. History of sleep apnea. 10. Mediastinal tumor, retroesophageal. 11. Gastric stenosis along sleeve gastrectomy OPERATION: 1. Robotic-assisted da Shashank Xi laparoscopic reduction and repair of incarcerated paraesophageal hiatal hernia, 5 x 4 cm, with [place] Biopatch A 8 x 8 cm. 2. Intraoperative esophagogastroduodenoscopy 3. Robotic-assisted da Shashank Xi laparoscopic resection of mediastinal tumor, retroesophageal. ANESTHESIA: General with local anesthetic. ESTIMATED BLOOD LOSS: 20 mL Pathology: other (Mediastinal tumor, hiatal hernia sac) COMPLICATIONS: None. FINDINGS: 1. Thoracic length 15 cm. 2. Port placed 12 cm distal. 3. Incarcerated upper pole of the stomach within the mediastinum with moderate dissection performed with resection of mediastinal hernia sac. 4. 8 cm paraesophageal incarcerated diaphragmatic hiatal hernia with moderate dissection into the mediastinum. 5. [place] Biopatch A onlay mesh placed. 6. Closure of the hiatus consistent with 56-Japanese bougie. 7. Reduction of incarcerated 5 cm superior pole of stomach from previously gastrectomy 8. Confirmed pre-existing gastric stenosis along sleeve gastrectomy 9. GE junction at 40 cm from the incisors INDICATIONS: The patient is a 62-year-old male who presents with epigastric abdominal pain, history of sleeve gastrectomy and gastroesophageal reflux with a symptomatic diaphragmatic hiatal hernia. Preoperative workup including upper endoscopy demonstrated a Hill grade 4 lower esophageal valve. Given the severity of his symptoms, particularly of his symptomatic diaphragmatic hiatal hernia, he had elected for surgical intervention. Benefits and risks including bleeding, infection, recurrence, dysphagia, injury to the lung, need for further surgery was described at length. Informed consent was obtained. DESCRIPTION: The patient was brought into the operating room and placed in supine position. Preoperatively he had received heparin subcutaneously for DVT prophylaxis. After general induction, the abdomen was prepped and draped in standard sterile fashion. The patient had previously voided prior to coming to the operating room. Ioban draping was placed along the abdomen. A timeout protocol was confirmed with the surgical team, for which the patient's name, procedure to be performed including DVT prophylaxis with bilateral SCDs, and preoperative antibiotics were also confirmed. A robotic Aposense Xi system was prepped and primed. At 15 cm from the xiphoid to just below the umbilicus, proposed port sites were marked with indelible marker along the left axillary line, left mid-clavicular line with each ports were marked 10 cm from each other. A 5 mm 0 degrees laparoscopic trocar entry was performed along the left upper quadrant. The abdomen was insufflated to 15 mmHg pressure he tolerated well. Diagnostic laparoscopy demonstrated no injury to bowel, viscera, or mesentery. The gallbladder was unremarkable. The liver surface was unremarkable. No injury had occurred to the small bowel or viscera. Along the hiatus, a defect was found anteriorly. Next, one 8 mm robotic port was placed along the right upper abdomen. An 8-mm port was were placed along the left lateral abdominal wall. The camera 8-mm port was maintained along the epigastrium via the hernia defect. Another 12 mm port was placed along the left upper abdominal wall after exchanging the 5 mm port. Please note that the ports were placed at least 20 cm away from the target anatomy. Care was taken to check that each robotic arm were safely away from collision with the bed or the patient. At the epigastrium, a median sized Satish liver retractor was placed under direct visualization with the [employer] Stock Clerk placed over the right shoulder of the patient. The additional third robotic arm was placed along the left aspect of the patient. The patient was repositioned in reverse Trendelenburg position at 14-degrees after lowering the bed. The robot was docked above the left side of the patient. Using a grasper for arm 3, a grasper for arm 1, including vessel sealer for arm 2, the robotic system was docked and primed as described. Instruments were interchanged by the multimedia production assistant. I had sat at the console. The gastrohepatic ligament was cleaved using a vessel sealer. Next, the phrenoesophageal ligament was mobilized and the distal esophagus was mobilized circumferentially. An incarcerated hernia sac was found along the mediastinum. As a result, deep dissection well into the mediastinum was needed to free the proximal sleeve gastrectomy including distal esophagus. The left and right crura was identified. A moderate sized midline large hiatal hernia and sac was found incarcerated into the mediastinum. Significant mobilization of the distal to mid esophagus into the mediastinum was performed. Circumferentially, the hernia sac was excised and brought into the peritoneal cavity. Care was taken to avoid any gastrotomy to the incarcerated upper pole of the stomach. The measured defect was consistent with 5 cm axial length and 4 cm in width. After extensive dissection, the distal esophagus at least 2 cm was brought into the abdominal cavity. Once the hiatus and crura was dissected, 2-0 VLOC suture was placed as a running suture to re-approximate the diaphragmatic hiatus posteriorly. To buttress the repair, a [place] Biopatch A was prepared along the back table and cut in a kaye-hole fashion as to reinforce the repair as an underlay. The mesh was placed along the crural repair and tagged using 2-0 Surgidek. I went to the head of the bed to perform intraoperative esophagogastroduodenoscopy. A 56-Japanese bougie was carefully placed along the posterior oropharynx through the hiatus as a visual aid for hiatus closure and then removed. I went to the head of the bed to perform intraoperative esophagogastroduodenoscopy. An Olympus gastroscope was passed through posterior oropharynx, where the GE junction was found at 40 cm from the incisors. The stomach was entered. A confirmed pre-existing gastric stenosis was found proximal to the angularis incisura. The duodenum was unremarkable. The stomach had been desufflated. No evidence of leaks were found either of the mucosal defects of the esophagus or stomach. The hiatal closure was consistent with a 56 Japanese bougie as a bougie was passed. This concluded the endoscopic portion of the case. The robot was undocked from the patient. I re-scrubbed into the case. All instruments and pneumoperitoneum were evacuated from the abdominal cavity. Incisions were reapproximated using 4-0 Monocryl in an interrupted subcuticular fashion. The 12-mm port site fascial defect was less than 8 mm in size. Dermabond was applied to the skin. Local anesthetic was infiltrated in all wounds for postop analgesia. Multiple intra-abdominal films were obtained. At the end of the procedure, needle, sponge, and instrument count was verified correct by the surgical aide. The patient had tolerated the procedure well and was taken to the postanesthesia unit in stable condition. Intraoperative films were reviewed with the patient's family who were pleased with the level of care.
== END 2017-07-04 11:55 | disposition home or self-care (01) ==
LOC: OR 05:58 → 5MS5E 10:57 → OR 07-04 11:55
PROVIDERS: ATTEND Surgery Plastic and Reconstructive Surgery
DX: K44.0 Diaphragmatic hernia with obstruction, without gangrene (principal); J98.59 Other diseases of mediastinum, not elsewhere classified; K31.89 Other diseases of stomach and duodenum; D49.89 Neoplasm of unspecified behavior of other specified sites; K21.0 Gastro-esophageal reflux disease with esophagitis; Z98.84 Bariatric surgery status; T81.89XA Other complications of procedures, not elsewhere classified, initial encounter; E66.01 Morbid (severe) obesity due to excess calories; I47.1 Supraventricular tachycardia; G47.33 Obstructive sleep apnea (adult) (pediatric); Z99.89 Dependence on other enabling machines and devices; Z68.35 Body mass index [BMI] 35.0-35.9, adult; E61.2 Magnesium deficiency; E55.9 Vitamin D deficiency, unspecified; R40.0 Somnolence; M79.3 Panniculitis, unspecified; Z86.711 Personal history of pulmonary embolism; Z87.891 Personal history of nicotine dependence; M17.0 Bilateral primary osteoarthritis of knee; I11.9 Hypertensive heart disease without heart failure; Z79.1 Long term (current) use of non-steroidal anti-inflammatories (NSAID); Z79.899 Other long term (current) drug therapy
CPT/HCPCS: 86900; 86901; 80051; 82310; 82565; 83735 ×2; 84100; 84520; 85025; 86850; 88302; 74210; 43282; C1781; J2250; J1100; J3475 ×2; J2710; J2765 ×2; Q9967; J0690 ×2; J2405; J2001; J1650 ×2; J3010; J1885; J1170 ×2; J2370; J0330; J2704; C9113

== ENCOUNTER → 2017-07-06 | Outpatient (CLI) | payer OTHER ==
[2017-07-06 10:29] VITALS: BP 122/82; PULSE 77; RESP 15; TEMP 98.1; BMI 37.5
--- NOTE | 2017-08-26 19:12 | P.PN ---
Subjective Progress Note Date: 07/06/17 DATE OF SERVICE: 07/06/2017 REASON FOR VISIT: Follow-up hiatal hernia repair HISTORY OF PRESENT ILLNESS: Hector Gray is a 62-year-old gentleman who is status post sleeve gast[place] [address] Meza. His highest weight was 367 pounds. His lowest weight was 197.5. Today he comes in weighing 242 pounds. He has gained 16 pounds in 3 months. He is postoperative day 3 following hiatal hernia repair. His reflux disease has completely resolved. He reports eating high sodium diet. For his height of 5 foot 7-1/2 inches, his ideal body weight is 158 pounds. He has maintain 125 pound weight loss. PHYSICAL EXAM: VITAL SIGNS: Height 5 foot 7.5 inches, weight 242 pounds. BMI 37.5 Vital Signs Temp 98.1 F 07/06/17 10:16 Pulse 77 07/06/17 10:16 Resp 15 07/06/17 10:16 BP 122/82 07/06/17 10:16 Pulse Ox GENERAL: Well-developed male in no acute distress. HEENT: No scleral icterus. Extraocular movements grossly intact. Hears conversational speech. No nasal drainage. NECK: Supple without lymphadenopathy. CHEST: Nonlabored respirations with equal bilateral excursions. CARDIOVASCULAR: Regular rate. Distal 2+ pulses. ABDOMEN: Obese, soft, nontender, nondistended. Incisions clean dry and intact. MUSCULOSKELETAL: No clubbing, cyanosis. Gross strength 5/5 distal lower extremities. Has bilateral lower extremity edema. NEURO: No focal or lateralizing signs. Cranial nerves 2 through 12 grossly within normal limits. PSYCH: Appropriate affect. Alert and oriented to person, place and time. SKIN: Good skin turgor. Well perfused. ASSESSMENT: 1. Morbid obesity due to excess calories. 2. Body mass index of 56.8 down to 37.5. 3. Obstructive sleep apnea. 4. Osteoarthritis of the bilateral knees. 5. Status post sleeve gastrectomy. 6. Status post massive weight loss, 125 pounds. 7. Status post hiatal hernia. 8. Panniculitis. PLAN: 1. I have recommended low-sodium diet. 2. Recommend defer panniculectomy until ideal weight loss is obtained. Objective - Vital Signs Vital signs: Vital Signs Temp 98.1 F 07/06/17 10:16 Pulse 77 07/06/17 10:16 Resp 15 07/06/17 10:16 BP 122/82 07/06/17 10:16 Pulse Ox Intake & Output 07/05/17 07/06/17 07/06/17 18:59 06:59 18:59 Weight 110.178 kg
== END | disposition home or self-care (01) ==
LOC: BARWHC3 09:31
PROVIDERS: ATTEND Surgery Plastic and Reconstructive Surgery
DX: Z09 Encounter for follow-up examination after completed treatment for conditions other than malignant neoplasm (principal); E66.01 Morbid (severe) obesity due to excess calories; G47.33 Obstructive sleep apnea (adult) (pediatric); M17.0 Bilateral primary osteoarthritis of knee; R63.4 Abnormal weight loss; M79.3 Panniculitis, unspecified; Z98.890 Other specified postprocedural states; Z68.37 Body mass index [BMI] 37.0-37.9, adult; Z98.84 Bariatric surgery status; Z87.19 Personal history of other diseases of the digestive system
CPT/HCPCS: 99211

== ENCOUNTER → 2017-08-02 | Outpatient (CLI) | payer OTHER ==
[2017-08-02 14:37] VITALS: BP 134/72; PULSE 90; RESP 15; TEMP 98.5; BMI 34.7
--- NOTE | 2017-08-26 19:18 | P.PN ---
Subjective Progress Note Date: 08/02/17 DATE OF SERVICE: 08/02/2017 REASON FOR VISIT: Follow-up hiatal hernia repair HISTORY OF PRESENT ILLNESS: Hector Gray is a 62-year-old gentleman who is status post sleeve gast[place] [address] Meza. His highest weight was 367 pounds. His lowest weight was 197.5. He is status post hiatal hernia repair 07/03/2017. Today he comes in weighing 225 pounds. He has lost 18 pounds in 1 month. No further ports of gastroesophageal reflux disease. He is extremely happy with his weight loss. His personal goal is to get to 205 pounds. He reports recurrent panniculitis. For his height of 5 foot 7-1/2 inches, his ideal body weight is 158 pounds. He has maintain 125 pound weight loss. PHYSICAL EXAM: VITAL SIGNS: Height 5 foot 7.5 inches, weight 225 pounds. BMI 34.8 Vital Signs Temp 98.5 F 08/02/17 14:21 Pulse 90 08/02/17 14:21 Resp 15 08/02/17 14:21 BP 134/72 08/02/17 14:21 Pulse Ox GENERAL: Well-developed male in no acute distress. HEENT: No scleral icterus. Extraocular movements grossly intact. Hears conversational speech. No nasal drainage. NECK: Supple without lymphadenopathy. CHEST: Nonlabored respirations with equal bilateral excursions. CARDIOVASCULAR: Regular rate. Distal 2+ pulses. ABDOMEN: Obese, soft, nontender, nondistended. Incisions granulated. MUSCULOSKELETAL: No clubbing, cyanosis. Gross strength 5/5 distal lower extremities. Has bilateral lower extremity edema. NEURO: No focal or lateralizing signs. Cranial nerves 2 through 12 grossly within normal limits. PSYCH: Appropriate affect. Alert and oriented to person, place and time. SKIN: Good skin turgor. Well perfused. ASSESSMENT: 1. Morbid obesity due to excess calories. 2. Body mass index of 56.8 down to 34.8 3. Obstructive sleep apnea. 4. Osteoarthritis of the bilateral knees. 5. Status post sleeve gastrectomy. 6. Status post massive weight loss, 142 pounds. 7. Status post hiatal hernia repair. 8. Panniculitis. PLAN: 1. Recommend reevaluation in 5-6 months as his personal goal is to get down to 205 pounds. 2. Continue with bariatric diet with protein intake over 75 g daily.
== END | disposition home or self-care (01) ==
LOC: BARWHC3 13:57
PROVIDERS: ATTEND Surgery Plastic and Reconstructive Surgery
DX: Z09 Encounter for follow-up examination after completed treatment for conditions other than malignant neoplasm (principal); M79.3 Panniculitis, unspecified; E66.01 Morbid (severe) obesity due to excess calories; G47.33 Obstructive sleep apnea (adult) (pediatric); M17.0 Bilateral primary osteoarthritis of knee; R63.4 Abnormal weight loss; Z98.890 Other specified postprocedural states; Z98.84 Bariatric surgery status; Z68.34 Body mass index [BMI] 34.0-34.9, adult
CPT/HCPCS: 99211

== ENCOUNTER → 2018-01-03 | Outpatient (CLI) | payer OTHER ==
[2018-01-03 16:29] VITALS: BP 153/97; PULSE 97; TEMP 98.2; BMI 34.3
--- NOTE | 2018-01-03 17:22 | P.PN ---
Subjective Progress Note Date: 01/03/18 HPI: Patient presents with long-standing history of panniculitis. His highest weight was 362 pounds. He has maintained over 140+ pound weight loss. His weight has been unchanged over 5 to 6 months. No reports of GERD. No reports of abdominal pain. He has chronic skin infections and back pain as a result of his pannus. He has been using Nystatin powder for close to 1 year without any improvement of his symptoms including local wound care. PLAN: 1. Panniculectomy reviewed in detail as he has medically refractory panniculitis. 2. Two week protein diet advised to correct in preparation for wound healing and catabolic state. 3. Benefits and risks of surgical intervention also reviewed. Objective - Vital Signs Vital signs: Vital Signs Temp 98.2 F 01/03/18 16:24 Pulse 97 01/03/18 16:24 Resp BP 153/97 01/03/18 16:24 Pulse Ox Intake & Output 01/02/18 01/03/18 01/03/18 18:59 06:59 18:59 Weight 101.06 kg
== END | disposition home or self-care (01) ==
LOC: BARWHC3 14:56
PROVIDERS: ATTEND Surgery Plastic and Reconstructive Surgery
DX: Z09 Encounter for follow-up examination after completed treatment for conditions other than malignant neoplasm (principal); L08.9 Local infection of the skin and subcutaneous tissue, unspecified; M54.9 Dorsalgia, unspecified; Z87.39 Personal history of other diseases of the musculoskeletal system and connective tissue
CPT/HCPCS: 99211

== ENCOUNTER → 2018-10-24 | Outpatient (CLI) | payer OTHER ==
[2018-10-24 16:13] VITALS: BP 121/83; PULSE 101; TEMP 98.1; BMI 33.9
--- NOTE | 2018-10-24 16:52 | P.PN ---
Subjective Progress Note Date: 10/24/18 DATE OF SERVICE: 10/24/2018 CHIEF COMPLAINT: Panniculitis HISTORY OF PRESENT ILLNESS: Hector Gray is a 63-year-old gentleman who is status post sleeve gastrectomy in 2011. He presents with long-standing history of panniculitis. His highest weight was 367 pounds. Today he comes in 220 pounds. He has maintained over 147 pound weight loss. He comes in with moderate chronic infection of his pannus. He has severe back pain as a result of his pannus. His highest weight was 367 pounds. Today he comes in weighing 220 pounds from 222 pounds. He has lost 2 pounds in 10 months. For his height of 5 foot 7-1/2 inches, his ideal body weight is 158 pounds. He has maintain 147 pound weight loss. Percent excess weight loss is 71 %. PAST MEDICAL HISTORY: 1. Morbid obesity. 2. Body mass index of 56.8, initial 3. Obstructive sleep apnea. 4. Osteoarthritis of the knees, 5. Hypertensive heart disease. 6. Gastroesophageal reflux disease 7. Vitamin D deficiency. 8. Panniculitis PAST SURGICAL HISTORY: 1. Sleeve gastrectomy, 05/2012. 2. Bilateral hip replacement. HOME MEDICATIONS: Home Medications Medication Instructions Recorded Confirmed Calcium Citrate/Vitamin D3 1 each PO BID 12/10/13 10/24/18 [Calcium Citrate - Vit D3 Tab] Cholecalciferol [Vitamin D3 (25 6,000 unit PO DAILY 12/10/13 10/24/18 Mcg = 1000 Iu)] Gluc HCl/Ben/Mv/Min Aa/Hb 162 2 each PO DAILY 12/10/13 10/24/18 [Glucosamine-Chondroitin Caplet] Multivitamins, Thera [Multivitamin 1 each PO DAILY 12/10/13 10/24/18 (formulary)] Vitamin B Complex 1 each PO DAILY 12/10/13 10/24/18 Zinc 50 mg PO DAILY 03/02/17 10/24/18 Cetirizine HCl 10 mg PO DAILY 03/14/17 10/24/18 Meloxicam [Mobic] 15 mg PO DAILY 03/14/17 10/24/18 ALLERGIES: 1. Denies. SOCIAL HISTORY: No active tobacco use. FAMILY HISTORY: No family history of ulcerative colitis disease or Crohn's disease. Has family history of colon cancer. REVIEW OF ORGAN SYSTEMS: CONSTITUTIONAL: His highest weight was 367 pounds. Today he comes in weighing 220 pounds from 222 pounds. He has lost 2 pounds in 10 months. For his height of 5 foot 7-1/2 inches, his ideal body weight is 158 pounds. He has maintain 147 pound weight loss. Percent excess weight loss is 71 %. HEENT: Denies any active troubles with vision or hearing. No troubles with swallowing. ENDOCRINE: No diabetes. No hypothyroidism. CARDIOVASCULAR: No reports of palpitations or heart attacks or chest pain. RESPIRATORY: Has daytime somnolence including snoring and sleep apnea. No asthma. GI: Denies any bright red blood per rectum or constipation. Gastroesophageal reflux disease is resolved. MUSCULOSKELETAL: Has lower back pain and joint pain. Has osteoarthritis of the hips and knees. NEURO: No headaches. No seizure disorders. PSYCH: No depression. No suicidal ideation. RHEUMATOLOGIC: No lupus. No rheumatoid arthritis. HEMATOLOGIC: Denies any abnormal bleeding or bruising. No personal history of DVTs. SKIN: Has moderate chronic panniculitis. No skin cancer. PHYSICAL EXAM: VITAL SIGNS: Height 5 foot 7.5 inches, weight 220 pounds. BMI 33.9 Vital Signs Temp 98.1 F 10/24/18 16:05 Pulse 101 H 10/24/18 16:05 Resp BP 121/83 10/24/18 16:05 Pulse Ox GENERAL: Well-developed male in no acute distress. HEENT: No scleral icterus. Extraocular movements grossly intact. Hears conversational speech. No nasal drainage. NECK: Supple without lymphadenopathy. CHEST: Nonlabored respirations with equal bilateral excursions. CARDIOVASCULAR: Tachycardic. Distal 2+ pulses. ABDOMEN: Obese, soft, nontender, nondistended. Moderate sized pannus of 15+ pounds. Hyperemia consistent with panniculitis. MUSCULOSKELETAL: No clubbing, cyanosis, or edema. Gross strength 5/5 distal lower extremities. NEURO: No focal or lateralizing signs. Cranial nerves 2 through 12 grossly within normal limits. PSYCH: Appropriate affect. Alert and oriented to person, place and time. SKIN: Good skin turgor. Well perfused. ASSESSMENT: 1. Morbid obesity due to excess calories. 2. Body mass index of 56.8 down to 33.9 3. Obstructive sleep apnea. 4. Osteoarthritis of the bilateral knees. 5. Status post sleeve gastrectomy. 6. Status post massive weight loss, 147 pounds. 7. Panniculitis, severe PLAN: 1. He has over 15 pounds of skin. Panniculectomy advised for medically refractory panniculitis. 2. Benefits and risks of surgical intervention also reviewed. 3. DVT prophylaxis. 4. Antibiotic prophylaxis. 5. Pre-operative correction of vitamin deficiency advised. Objective - Vital Signs Vital signs: Vital Signs Temp 98.1 F 10/24/18 16:05 Pulse 101 H 10/24/18 16:05 Resp BP 121/83 10/24/18 16:05 Pulse Ox Intake & Output 10/23/18 10/24/18 10/24/18 18:59 06:59 18:59 Weight 99.79 kg - Labs CBC & Chem 7: 10/24/18 17:27 10/24/18 17:27
[2018-10-24 18:13] LABS: HCT 43.7 % (39.0-53.0); HGB 14.1 gm/dL (13.0-17.5); MCH 30.5 pg (25.0-35.0); MCHC 32.4 g/dL (31.0-37.0); MCV 94.2 fL (80.0-100.0); Mean Platelet Volume 6.6; Platelet Count 208 k/uL (150-450); RBC 4.64 m/uL (4.30-5.90); RDW 13.4 % (11.5-15.5); WBC 6.6 k/uL (3.8-10.6)
[2018-10-24 18:31] LABS: INR 1.1 (<1.2); Partial Thromboplastin Time 22.3 sec (22.0-30.0); Prothrombin Time 11.3 sec (9.0-12.0)
[2018-10-25 00:27] LABS: African American GFR (CKD) 93.7 (60.0-200.0); Albumin 3.7 g/dL (3.80-4.90); Albumin/Globulin Ratio 3.36 (1.60-3.17); Anion Gap 10.3 mmol/L (4.00-12.00); Carbon Dioxide 23.7 mmol/L (21.6-31.8); Globulin 1.1 g/dL (1.6-3.3); Magnesium 1.5 mg/dL (1.5-2.4); Phosphorus 3.9 mg/dL (2.4-5.1); Potassium 4.9 mmol/L (3.5-5.5); Total Bilirubin 0.5 mg/dL (0.3-1.2); Total Protein 4.8 g/dL (6.2-8.2)
[2018-10-25 00:38] LABS: Hemoglobin A1C 5.3 % (4.0-6.0)
[2018-10-25 00:57] LABS: Parathyroid Hormone Intact 91.8 pg/mL (14.0-72.0)
[2018-10-25 01:32] LABS: Iron Saturation 23.69 (15.00-50.00)
[2018-10-25 01:42] LABS: Folate, Serum 9.2 ng/mL; Vitamin D 25 Hydroxy 51.9 ng/mL (30.0-100.0)
[2018-10-25 13:59] LABS: Zinc, Serum 76 ug/dL (60-130)
[2018-10-26 06:24] LABS: Vitamin A 74 ug/dL (38-106)
[2018-10-26 15:22] LABS: Vit B1(Thiamine) 88 ug/L (38-122)
[2018-10-30 17:34] LABS: Selenium 110 mcg/L (63-160)
== END | disposition home or self-care (01) ==
LOC: BARWHC3 14:50
PROVIDERS: ATTEND Surgery Plastic and Reconstructive Surgery
DX: Z48.815 Encounter for surgical aftercare following surgery on the digestive system (principal); E66.01 Morbid (severe) obesity due to excess calories; G47.33 Obstructive sleep apnea (adult) (pediatric); M17.0 Bilateral primary osteoarthritis of knee; M79.3 Panniculitis, unspecified; E21.1 Secondary hyperparathyroidism, not elsewhere classified; E89.1 Postprocedural hypoinsulinemia; D50.9 Iron deficiency anemia, unspecified; K90.9 Intestinal malabsorption, unspecified; E55.9 Vitamin D deficiency, unspecified; K76.9 Liver disease, unspecified; N19 Unspecified kidney failure; K50.90 Crohn's disease, unspecified, without complications; Z68.33 Body mass index [BMI] 33.0-33.9, adult; Z98.84 Bariatric surgery status; Z79.899 Other long term (current) drug therapy
CPT/HCPCS: 84255; 84134; 84425; 80061; 80053; 82607; 82728; 82525; 82746; 83540; 83550; 83735; 84100; 84443; 84590; 84630; 85027; 85610; 85730; 82306; 83970; 83036; 36415; G0463; 99211

== ENCOUNTER → 2019-02-27 | Outpatient (CLI) | payer OTHER ==
[2019-02-27 16:34] VITALS: BP 133/92; PULSE 78; TEMP 98; BMI 32.7
--- NOTE | 2019-02-27 17:04 | P.PN ---
Subjective Progress Note Date: 02/27/19 HPI: Has mild panniculitis. Lost of 30 pounds in 2 years. No GERD ABDOMEN: 10 pounds of pannus ASSESSMENT: 1. Panniculitis PLAN: 1. Panniculectomy reviewed and pain prescription. 2. Two week protein. Objective - Vital Signs Vital signs: Vital Signs Temp 98.0 F 02/27/19 16:27 Pulse 78 02/27/19 16:27 Resp BP 133/92 02/27/19 16:27 Pulse Ox Intake & Output 02/26/19 02/27/19 02/27/19 18:59 06:59 18:59 Weight 96.162 kg
== END ==
LOC: BARWHC3 14:56
PROVIDERS: ATTEND Surgery Plastic and Reconstructive Surgery
DX: M79.3 Panniculitis, unspecified (principal); E65 Localized adiposity
CPT/HCPCS: 99211

== ENCOUNTER → 2019-02-27 | Outpatient (CLI) | payer OTHER ==
[2019-02-27 18:12] LABS: Basophils # (A) 0.1 k/uL (0-0.2); Basophils % (A) 1 %; Eosinophils # (A) 0.1 k/uL (0-0.7); Eosinophils % (A) 2 %; HCT 43.7 % (39.0-53.0); HGB 14.3 gm/dL (13.0-17.5); Lymphocytes # (A) 1.8 k/uL (1.0-4.8); Lymphocytes % (A) 26 %; MCH 31.2 pg (25.0-35.0); MCHC 32.8 g/dL (31.0-37.0); MCV 95.1 fL (80.0-100.0); Mean Platelet Volume 6.8; Monocytes # (A) 0.5 k/uL (0-1.0); Monocytes % (A) 6 %; Neutrophils # (A) 4.4 k/uL (1.3-7.7); Neutrophils % (A) 63 %; Platelet Count 206 k/uL (150-450); RBC 4.59 m/uL (4.30-5.90); RDW 12.9 % (11.5-15.5)
[2019-02-27 18:15] LABS: ALT 28 U/L (21-72); AST 29 U/L (17-59); African American GFR (CKD) >90 (>60 ml/min/1.73 sqM); Albumin 4.4 g/dL (3.5-5.0); Alkaline Phosphatase 70 U/L (38-126); Anion Gap 8 mmol/L; Blood Urea Nitrogen 38 mg/dL (9-20); Calcium 9.8 mg/dL (8.4-10.2); Carbon Dioxide 27 mmol/L (22-30); Chloride 106 mmol/L (98-107); Glucose 91 mg/dL (74-99); Potassium 5.2 mmol/L (3.5-5.1); Sodium 141 mmol/L (137-145); Total Bilirubin 0.4 mg/dL (0.2-1.3); Total Protein 6.9 g/dL (6.3-8.2)
== END | disposition home or self-care (01) ==
LOC: LABPAT 17:17
PROVIDERS: ATTEND Surgery Plastic and Reconstructive Surgery
DX: Z01.818 Encounter for other preprocedural examination (principal); Z01.812 Encounter for preprocedural laboratory examination
CPT/HCPCS: 80053; 85025; 93005

== ENCOUNTER 2019-03-04 08:00 | Inpatient (IN) | payer OTHER ==
--- NOTE | 2019-03-03 18:00 | P.GSHP ---
History of Present Illness H&P Date: 03/04/19 DATE OF SERVICE: 03/04/2019 CHIEF COMPLAINT: Panniculitis HISTORY OF PRESENT ILLNESS: Hector Gray is a 63-year-old gentleman who is status post sleeve gastrectomy in 2011. He presents with long-standing history of panniculitis. His highest weight was 367 pounds. Today he comes in 214 pounds from 220 pounds, 4 months ago. He has maintained 152 pound weight loss. He comes in with moderate chronic infection of his pannus. He has severe back pain as a result of his pannus. His highest weight was 367 pounds. Today he comes in weighing 214 pounds from 220 pounds, 4 months ago. He has lost 5 pounds in 4 months. For his height of 5 foot 7-1/2 inches, his ideal body weight is 158 pounds. He has maintain 52 pound weight loss. Percent excess weight loss is 73 %. PAST MEDICAL HISTORY: 1. Morbid obesity due to excess calories. 2. Body mass index of 56.8, initial 3. Obstructive sleep apnea. 4. Osteoarthritis of the knees, 5. Hypertensive heart disease. 6. Gastroesophageal reflux disease 7. Vitamin D deficiency. 8. Panniculitis PAST SURGICAL HISTORY: 1. Sleeve gastrectomy, 05/2012. 2. Bilateral hip replacement. 3. Hiatal hernia repair HOME MEDICATIONS: Home Medications Medication Instructions Recorded Confirmed Calcium Citrate/Vitamin D3 1 each PO BID 12/10/13 10/24/18 [Calcium Citrate - Vit D3 Tab] Cholecalciferol [Vitamin D3 (25 6,000 unit PO DAILY 12/10/13 10/24/18 Mcg = 1000 Iu)] Gluc HCl/Ben/Mv/Min Aa/Hb 162 2 each PO DAILY 12/10/13 10/24/18 [Glucosamine-Chondroitin Caplet] Multivitamins, Thera [Multivitamin 1 each PO DAILY 12/10/13 10/24/18 (formulary)] Vitamin B Complex 1 each PO DAILY 12/10/13 10/24/18 Zinc 50 mg PO DAILY 03/02/17 10/24/18 Cetirizine HCl 10 mg PO DAILY 03/14/17 10/24/18 Meloxicam [Mobic] 15 mg PO DAILY 09/19/17 05/01/19 ALLERGIES: 1. Denies. SOCIAL HISTORY: No active tobacco use. FAMILY HISTORY: No family history of ulcerative colitis disease or Crohn's disease. Has family history of colon cancer. REVIEW OF ORGAN SYSTEMS: CONSTITUTIONAL: His highest weight was 367 pounds. For his height of 5 foot 7- 1/2 inches, his ideal body weight is 158 pounds. HEENT: Denies any active troubles with vision or hearing. No troubles with swallowing. ENDOCRINE: No diabetes. No hypothyroidism. CARDIOVASCULAR: No reports of palpitations or heart attacks or chest pain. RESPIRATORY: Has daytime somnolence including snoring and sleep apnea. No asthma. GI: Denies any bright red blood per rectum or constipation. Gastroesophageal reflux disease is resolved. MUSCULOSKELETAL: Has lower back pain and joint pain. Has osteoarthritis of the hips and knees. NEURO: No headaches. No seizure disorders. PSYCH: No depression. No suicidal ideation. RHEUMATOLOGIC: No lupus. No rheumatoid arthritis. HEMATOLOGIC: Denies any abnormal bleeding or bruising. No personal history of D VTs. SKIN: Has moderate chronic panniculitis. No skin cancer. PHYSICAL EXAM: VITAL SIGNS: Height 5 foot 7.5 inches, weight 214 pounds. BMI 33.2 GENERAL: Well-developed male in no acute distress. HEENT: No scleral icterus. Extraocular movements grossly intact. Hears conversational speech. No nasal drainage. NECK: Supple without lymphadenopathy. CHEST: Nonlabored respirations with equal bilateral excursions. CARDIOVASCULAR: Regular rate. Distal 2+ pulses. ABDOMEN: Obese, soft, nontender, nondistended. Moderate sized pannus of 10+ pounds. MUSCULOSKELETAL: No clubbing, cyanosis, or edema. Gross strength 5/5 distal lower extremities. NEURO: No focal or lateralizing signs. Cranial nerves 2 through 12 grossly within normal limits. PSYCH: Appropriate affect. Alert and oriented to person, place and time. SKIN: Good skin turgor. Well perfused. ASSESSMENT: 1. Morbid obesity due to excess calories. 2. Body mass index of 56.8 down to 33.2 3. Obstructive sleep apnea. 4. Osteoarthritis of the bilateral knees. 5. Status post sleeve gastrectomy. 6. Status post massive weight loss, 152 pounds. 7. Panniculitis, severe PLAN: 1. Panniculectomy advised for medically refractory panniculitis. 2. Benefits and risks of surgical intervention also reviewed. 3. DVT prophylaxis. 4. Antibiotic prophylaxis. Past Medical History Past Medical History: Osteoarthritis (OA), Prostate Disorder, Pulmonary Embolus (PE), Sleep Apnea/CPAP/BIPAP Additional Past Medical History / Comment(s): CPAP. Enlarged prostate. Pinched nerve left leg. History of Any Multi-Drug Resistant Organisms: None Reported Past Surgical History: Bariatric Surgery, Joint Replacement Additional Past Surgical History / Comment(s): Bilateral hip replacements, Gastris Sleeve, EGD. Past Anesthesia/Blood Transfusion Reactions: No Reported Reaction Smoking Status: Former smoker - Past Family History Father Family Medical History: Cancer Additional Family Medical History / Comment(s): Colon cancer. Medications and Allergies Home Medications Medication Instructions Recorded Confirmed Type Calcium Citrate/Vitamin D3 1 each PO BID 12/10/13 02/27/19 History [Calcium Citrate - Vit D3 Tab] Gluc HCl/Ben/Mv/Min Aa/Hb 162 2 each PO DAILY 12/10/13 02/27/19 History [Glucosamine-Chondroitin Caplet] Multivitamins, Thera [Multivitamin 1 each PO DAILY 12/10/13 02/27/19 History (formulary)] Vitamin B Complex 1 each PO DAILY 12/10/13 02/27/19 History Cetirizine HCl 10 mg PO DAILY 03/14/17 02/27/19 History Meloxicam [Mobic] 15 mg PO DAILY 03/14/17 02/27/19 History Nystatin 100,000 Unit/gm Powd 1 applic TOPICAL TID 02/13/19 02/27/19 History [Mycostatin Powder] Acetaminophen Tab [Tylenol Tab] 650 mg PO TID 02/22/19 02/27/19 History Tamsulosin [Flomax] 0.4 mg PO DAILY 02/22/19 02/27/19 History Acetaminophen-Codeine 300-30mg 1 tab PO TID PRN 02/27/19 02/27/19 History [Tylenol w/codeine #3] Allergies Allergy/AdvReac Type Severity Reaction Status Date / Time No Known Allergies Allergy Verified 02/27/19 16:36
[~2019-03-04 08:00] MED LIST changes: +HEPARIN SODIUM,PORCINE 5,000 UNIT/ML 1 ML VIAL SQ ONE; -LIDOCAINE 1% 20 ML VIAL (10MG/ML) FOR IV START INTRADERMA PRN; +MIDAZOLAM 2 MG/2 ML VIAL IV PRN; -ceFAZolin IN SWFI 2 GM/20 ML SYRINGE IVP ONE
[2019-03-04] MEDS: LACTATED RINGERS 1,000 ML IV SCH (11:35)
[2019-03-04] MEDS ORDERED: SUCCINYLCHOLINE CHLORIDE 100 MG/5 ML SYR IV ONE (13:50)
[2019-03-04] MEDS ORDERED: fentaNYL (PF) 50 MCG/ML 2 ML AMP ONE (13:50)
[2019-03-04] MEDS ORDERED: HYDROmorphone (PF) 1 MG/ML ONE (13:50)
[2019-03-04] MEDS ORDERED: LIDOCAINE 1% INJ 10MG/ML (20 ML MDV) ONE (13:50)
[2019-03-04] MEDS ORDERED: NEOSTIGMINE 1 MG/ML 10 ML VIAL ONE (13:50)
[2019-03-04] MEDS ORDERED: MIDAZOLAM 2 MG/2 ML VIAL ONE (13:50)
[2019-03-04] MEDS ORDERED: VECURONIUM 10 MG VIAL IV ONE (13:50)
[2019-03-04] MEDS ORDERED: PROPOFOL 10 MG/ML 20 ML VIAL IV ONE (13:50)
[2019-03-04] MEDS ORDERED: GLYCOPYRROLATE 0.2 MG/ML 2 ML VIAL ONE (13:50)
[2019-03-04] MEDS ORDERED: LACTATED RINGERS 1,000 ML IV ONE (14:45)
--- NOTE | 2019-03-04 16:47 | P.OP ---
Date of Procedure: 03/04/19 Description of Procedure: SURGEON: CHAI MATOS MD PREOPERATIVE DIAGNOSES: 1. Morbid obesity due to excess calories. 2. Body mass index of 56.8 down to 33.2 3. Obstructive sleep apnea. 4. Osteoarthritis of the bilateral knees. 5. Status post sleeve gastrectomy. 6. Status post massive weight loss, 152 pounds. 7. Panniculitis, severe 8. Central adiposity POSTOPERATIVE DIAGNOSES: 1. Morbid obesity due to excess calories. 2. Body mass index of 56.8 down to 33.2 3. Obstructive sleep apnea. 4. Osteoarthritis of the bilateral knees. 5. Status post sleeve gastrectomy. 6. Status post massive weight loss, 152 pounds. 7. Panniculitis, severe 8. Central adiposity OPERATION: 1. Panniculectomy, 5.7 pounds. ANESTHESIA: General ESTIMATED BLOOD LOSS: 100 mL SPECIMENS REMOVED: Pannus 5.7 pounds. COMPLICATIONS: None. CONDITION: Stable. DRAINS: Two #19 Minh drains below abdominal flap extending through the pubis. OPERATIVE FINDINGS: 1. Pannus weighing 5.7 pounds, excised. INDICATIONS: Hector Gray is a 63-year-old gentleman who is status post sleeve gastrectomy in 2011. He presents with long-standing history of panniculitis. His highest weight was 367 pounds. Today he comes in 214 pounds from 220 pounds, 4 months ago. He has maintained 152 pound weight loss. He comes in with moderate chronic infection of his pannus. He has severe back pain as a result of his pannus. His highest weight was 367 pounds. Today he comes in weighing 214 pounds from 220 pounds, 4 months ago. He has lost 5 pounds in 4 months. For his height of 5 foot 7-1/2 inches, his ideal body weight is 158 pounds. He has maintain 52 pound weight loss. Percent excess weight loss is 73 %. Given his clinical symptoms, including massive weight loss, he elected for surgical intervention with a panniculectomy. Benefits and risks of the procedure including bleeding, infection, risk of flap failure, abdominal wall seromas, chronic pain were described at length. Informed consent was obtained. DESCRIPTION: In the preanesthesia care unit the patient was marked with an indelible marker. He had also been given heparin subcutaneously. The patient was brought into the operating room and laid in supine position. After general induction, a Marroquin catheter was placed. The abdomen was then prepped and draped in standard sterile fashion using ChloraPrep. The skin was prepped as far laterally to the back, inferiorly to the upper thighs and superiorly to above the bilateral breasts. A timeout protocol was confirmed with the surgical team regarding patient's name, procedure to be performed, including preoperative medications. He had received Ancef 2 grams IV antibiotics. Once the time-out protocol was confirmed with the surgical team, the patient was re-marked with indelible marker whereby the midline of the xiphoid to the pubis was marked. The anterior/superior iliac spine along the bilateral hips was also marked. Approximately 10 cm above the pubis, a transverse incision was made for the inferior portion of the flap. Using a #10 blade, the incision was taken from the midline laterally to above the anterior/superior iliac spine, initially on the left side of the patient and then on the right side of the patient. Electro- Bovie cautery was used to control for hemostasis. The dissection was taken down to the level of the fascia. Landmarks used were the xiphoid process as well as the bilateral costal margins for the superior margin. Care was taken to avoid any creation of dog ears during the dissection. Hemostasis was once again checked with electro-Bovie cautery and all defects were addressed. Attention was now brought to closure of the flap. Using stainless steel skin valentina, the midline was once again marked of the upper flap as well as the pubic commissure. The patient was placed in a flexed position of approximately 30 degrees at the hips. The pannus was extended inferiorly to the feet. The upper flap was created once the excess skin was excised. Again care was taken to avoid any dog ears along the lateral aspect of the incisions. Once excised, the pannus was weighed at 5.7 pounds. The upper and lower flaps were reapproximated at the midline and then laterally to the skin with skin valentina. Once reapproximated, the skin was closed in layers using 0 Vicryl for the superficial fascial system followed by running 3-0 Monocryl for the deep dermis in a running subcuticular fashion. Prior to skin closure, two round #19 Minh drains were placed underneath the flap and brought out just inferior to the incision along the pubis. Drain stitch using 2-0 nylon was placed. Once the incision was closed, bulb suction was attached. Hemostasis was checked. At the end of the procedure, the needle, sponge and instrument count was verified correct. Exofin tape was placed along the length of the incision. Optifoam dressings were applied over the incision and used as a drain sponge. The patient was then transferred to a hospital bed in a beach chair position. An abdominal binder was placed and marked. The patient was taken to the postanesthesia care unit in stable condition, awake and extubated. The intraoperative findings were discussed with her parents who was pleased with the level of care.
[2019-03-04] MEDS ORDERED: ONDANSETRON 4 MG/2 ML VIAL IVP PRN (16:50)
[2019-03-04] MEDS ORDERED: NALOXONE 0.4 MG/ML 1 ML VIAL IV PRN (16:50)
[2019-03-04] MEDS ORDERED: Acetaminophen-Codeine 300-30mg TAB PO PRN (16:52)
[2019-03-04] MEDS: HYDROmorphone 0.5 MG/0.5 ML SYRINGE IVP PRN ×4 (17:00→17:39)
[2019-03-04] MEDS: ACETAMINOPHEN IV (For NPO) 1,000 MG in EMPTY BAG 1 BAG IVPB ONE ×2 (17:08→17:26)
[2019-03-04] MEDS: SODIUM CHLORIDE 0.9% 1,000 ML IV SCH (19:30)
[2019-03-04] MEDS: HYDROmorphone 1 MG/ML 1 ML SYRINGE IVP PRN (21:05)
[2019-03-04 21:46] VITALS: BMI 31.5
[2019-03-04] MEDS: ACETAMINOPHEN TAB 325 MG TAB PO SCH (23:23)
[2019-03-05] MEDS: HYDROmorphone 1 MG/ML 1 ML SYRINGE IVP PRN ×2 (00:09→04:39)
[2019-03-05] MEDS: SODIUM CHLORIDE 0.9% 1,000 ML IV SCH ×2 (01:13→15:44)
[2019-03-05] MEDS: LACTATED RINGERS 1,000 ML IV SCH (05:25)
[2019-03-05 07:09] LABS: Basophils % (A) 0 %; Eosinophils # (A) 0.1 k/uL (0-0.7); Eosinophils % (A) 1 %; HCT 38.1 % (39.0-53.0); HGB 12.8 gm/dL (13.0-17.5); Lymphocytes # (A) 1.1 k/uL (1.0-4.8); Lymphocytes % (A) 12 %; MCH 31.7 pg (25.0-35.0); MCHC 33.6 g/dL (31.0-37.0); MCV 94.5 fL (80.0-100.0); Mean Platelet Volume 7.3; Monocytes # (A) 0.7 k/uL (0-1.0); Monocytes % (A) 7 %; Neutrophils # (A) 7.4 k/uL (1.3-7.7); Neutrophils % (A) 79 %; Platelet Count 190 k/uL (150-450); RBC 4.04 m/uL (4.30-5.90); RDW 12.8 % (11.5-15.5); WBC 9.5 k/uL (3.8-10.6)
[2019-03-05 07:32] LABS: Potassium 4.7 mmol/L (3.5-5.1)
[2019-03-05] MEDS: ACETAMINOPHEN TAB 325 MG TAB PO SCH ×3 (08:29→22:41)
[2019-03-05] MEDS: TAMSULOSIN 0.4 MG CAP.ER.24H PO SCH (08:29)
[2019-03-05] MEDS ORDERED: PANTOPRAZOLE 40 MG/10 ML VIAL IV SCH (09:00)
--- NOTE | 2019-03-05 13:54 | P.PN ---
<Ernestina Phillips A - Last Filed: 03/05/19 14:46> Subjective Progress Note Date: 03/05/19 CHIEF COMPLAINT: Panniculitis HISTORY OF PRESENT ILLNESS: patient is status post panniculectomy with removal of 5.7 pounds. Postop day #1. Patient examined at the bedside. His pain is controlled. Tolerating diet. Denies nausea or vomiting. Patients urinary catheter was removed this morning. He was unable to urinate. He has been started on Flomax. Spoke with nursing this afternoon who reports patient has been voiding since without difficulty. Vital signs stable. Afebrile. WBC 9.5. Hemog lobin 12.8. PHYSICAL EXAM: VITAL SIGNS: Reviewed. GENERAL: Well-developed in no acute distress. HEENT: No sclera icterus. Extraocular movements grossly intact. Moist buccal m ucosa. Head is atraumatic, normocephalic. Hears conversational speech. No nasal drainage. NECK: Supple without lymphadenopathy. CHEST: Non-labored respirations and equal bilateral excursions. CARDIOVASCULAR: Regular rate with regular rhythm. Palpable 2+ radial pulses. ABDOMEN: Soft. Nondistended. Appropriate surgical tenderness. Abdominal binder intact. CHRISTIAN drain x 2 with sanguinous drainage MUSCULOSKELETAL: No clubbing, cyanosis or edema. NEUROLOGIC: No focal or lateralizing signs. Cranial nerves II through XII grossly intact. PSYCH: Appropriate affect. Alert and oriented to person, place and time. SKIN: Well perfused. Good skin turgor. ASSESSMENT: 1. Morbid obesity due to excess calories. 2. Body mass index of 56.8 down to 33.2 3. Obstructive sleep apnea. 4. Osteoarthritis of the bilateral knees. 5. Status post sleeve gastrectomy. 6. Status post massive weight loss, 152 pounds. 7. Panniculitis, severe 8. Central adiposity 9. Urinary retention, pre-existing uropathy PLAN: 1. Continue regular diet 2. Continue Flomax. Monitor urine output. 3. Pain control. Continue Dilaudid for severe pain. Patients home dose of Ty lenol #3 has been resumed 4. Incentive spirometry 5. Activity as tolerated 6. Continue abdominal binder. Do not remove binder!! 7. Continue to monitor drainage from CHRISTIAN drains. Nurse practitioner note has been reviewed by physician. Signing provider agrees with the documented findings, assessment, and plan of care. Objective - Vital Signs Vital signs: Vital Signs Temp 98.7 F 03/05/19 07:00 Pulse 80 03/05/19 07:00 Resp 18 03/05/19 07:21 BP 125/84 03/05/19 07:00 Pulse Ox 100 03/05/19 07:00 Intake & Output 03/04/19 03/05/19 03/05/19 18:59 06:59 18:59 Intake Total 1800 1700 200 Output Total 400 1060 1000 Balance 1400 640 -800 Intake: IV 1800 Intake, IV Titration 1000 Amount Sodium Chloride 0.9% 1, 1000 000 ml @ 100 mls/hr IV . Q10H SALLY Rx#:[id number] Oral 700 200 Output: Drainage 60 Left Abdomen 30 Right Abdomen 30 Urine 300 1000 1000 Estimated Blood Loss 100 Other: Voiding Method Indwelling Catheter Toilet Urinal - Labs CBC & Chem 7: 03/05/19 06:27 03/05/19 06:27 Labs: Abnormal Lab Results - Last 24 Hours (Table) 03/05/19 Range/Units 06:27 RBC 4.04 L (4.30-5.90) m/uL Hgb 12.8 L (13.0-17.5) gm/dL Hct 38.1 L (39.0-53.0) % Assessment and Plan (1) Panniculus adiposus Current Visit: Yes Status: Acute Code(s): E65 - LOCALIZED ADIPOSITY SNOMED Code(s): 187655180 (2) S/P panniculectomy Current Visit: Yes Status: Acute Code(s): Z98.890 - OTHER SPECIFIED POSTPROCEDURAL STATES SNOMED Code(s): 009295309 (3) BMI 35.0-35.9,adult Current Visit: No Status: Acute Code(s): Z68.35 - BODY MASS INDEX (BMI) 3 5.0-35.9, ADULT SNOMED Code(s): 802544124 (4) Gastroesophageal reflux disease Current Visit: No Status: Acute Code(s): K21.9 - GASTRO-ESOPHAGEAL REFLUX DISEASE WITHOUT ESOPHAGITIS SNOMED Code(s): 783037973 (5) History of sleeve gastrectomy Current Visit: No Status: Acute Code(s): Z98.890 - OTHER SPECIFIED POSTPROCEDURAL STATES; Z90.3 - ACQUIRED ABSENCE OF STOMACH [PART OF] SNOMED Code(s): 721853342919016 (6) Panniculitis Current Visit: No Status: Acute Code(s): M79.3 - PANNICULITIS, UNSPECIFIED SNOMED Code(s): 62872970 <Niya Duenas N - Last Filed: 03/06/19 00:57> Subjective As above. He has pre-existing obstructive uropathy. Continue hospitalization. Discharge tomorrow. Objective - Vital Signs Vital signs: Vital Signs Temp 98.5 F 03/05/19 19:20 Pulse 85 03/05/19 19:20 Resp 16 03/05/19 19:20 BP 143/88 03/05/19 19:20 Pulse Ox 98 03/05/19 14:51 Intake & Output 03/05/19 03/05/19 03/06/19 06:59 18:59 06:59 Intake Total 1700 1730 Output Total 1060 1090 Balance 640 640 Intake: Intake, IV Titration 1000 850 Amount Sodium Chloride 0.9% 1, 1000 800 000 ml @ 100 mls/hr IV . Q10H SALLY Rx#:[id number] ceFAZolin 2 gm In Sodium 50 Chloride 0.9% 50 ml @ 100 mls/hr IVPB Q8HR SALLY Rx# :[id number] Oral 700 880 Output: Drainage 60 90 Left Abdomen 30 45 Right Abdomen 30 45 Urine 1000 1000 Other: Voiding Method Indwelling Catheter Toilet Urinal # Voids 3 1 - Labs CBC & Chem 7: 03/05/19 06:27 03/05/19 06:27 Labs: Abnormal Lab Results - Last 24 Hours (Table) 03/05/19 Range/Units 06:27 RBC 4.04 L (4.30-5.90) m/uL Hgb 12.8 L (13.0-17.5) gm/dL Hct 38.1 L (39.0-53.0) %
[2019-03-06] MEDS: SODIUM CHLORIDE 0.9% 1,000 ML IV SCH (03:09)
[2019-03-06 07:11] LABS: Basophils % (A) 0 %; Eosinophils # (A) 0.1 k/uL (0-0.7); Eosinophils % (A) 2 %; HCT 41.4 % (39.0-53.0); HGB 13.7 gm/dL (13.0-17.5); Lymphocytes # (A) 1.8 k/uL (1.0-4.8); Lymphocytes % (A) 26 %; MCHC 33.2 g/dL (31.0-37.0); MCV 96.2 fL (80.0-100.0); Mean Platelet Volume 7.9; Monocytes # (A) 0.5 k/uL (0-1.0); Monocytes % (A) 7 %; Neutrophils # (A) 4.2 k/uL (1.3-7.7); Neutrophils % (A) 62 %; Platelet Count 210 k/uL (150-450); WBC 6.7 k/uL (3.8-10.6)
[2019-03-06] MEDS: ACETAMINOPHEN TAB 325 MG TAB PO SCH (07:11)
[2019-03-06] MEDS: TAMSULOSIN 0.4 MG CAP.ER.24H PO SCH (07:12)
[2019-03-06 08:04] VITALS: BP 125/74; PULSE 104; RESP 16; TEMP 98.2
[2019-03-06] MEDS ORDERED: PANTOPRAZOLE 40 MG TABLET PO SCH (09:00)
--- NOTE | 2019-03-06 11:55 | P.DS ---
<Ernestina Phillips - Last Filed: 03/06/19 11:48> Providers Expected date of discharge: 03/06/19 - Discharge Diagnosis(es) (1) Panniculus adiposus Status: Acute (2) S/P panniculectomy Status: Acute (3) BMI 35.0-35.9,adult Status: Acute (4) Gastroesophageal reflux disease Status: Acute (5) History of sleeve gastrectomy Status: Acute (6) Panniculitis Status: Acute Hospital Course: Hector Gray is a 63-year-old gentleman who is status post sleeve gastrectomy in 2011. He presents with long-standing history of panniculitis. His highest weight was 367 pounds. Today he comes in 214 pounds from 220 pounds, 4 months ago. He has maintained 152 pound weight loss. He comes in with moderate chronic infection of his pannus. He has severe back pain as a result of his pannus. Patient is status post panniculectomy with removal of 5.7 pounds performed on 03/04/19. Patient is doing well postoperatively without any immediate complications. His pain is controlled with oral medications. Tolerating diet without nausea or vomiting. Vital signs stable. Labs stable. Patient has a history of obstructive uropathy. He was resumed on Flomax postoperatively and has been voiding without difficulty. He is stable for discharge home today. He is to follow up outpatient with Dr. Duenas. Please see EMR for further hospital course details. Discharge Diagnosis: 1. Morbid obesity due to excess calories. 2. Body mass index of 56.8 down to 33.2 3. Obstructive sleep apnea. 4. Osteoarthritis of the bilateral knees. 5. Status post sleeve gastrectomy. 6. Status post massive weight loss, 152 pounds. 7. Panniculitis, severe 8. Central adiposity 9. Urinary retention, pre-existing obstructive uropathy Nurse practitioner note has been reviewed by physician. Signing provider agrees with the documented findings, assessment, and plan of care. Patient Condition at Discharge: Stable Plan - Discharge Summary Discharge Rx Participant: Yes New Discharge Prescriptions: New HYDROcodone/APAP 5-325MG [Formoso 5-325] 1 tab PO Q4HR PRN 3 Days #18 tab PRN Reason: Pain Continue Calcium Citrate/Vitamin D3 [Calcium Citrate - Vit D3 Tab] 1 tab PO BID Gluc HCl/Ben/Mv/Min Aa/Hb 162 [Glucosamine-Chondroitin Caplet] 2 tab PO DAILY Multivitamins, Thera [Multivitamin (formulary)] 1 tab PO DAILY Vitamin B Complex 1 cap PO DAILY Cetirizine HCl 10 mg PO DAILY Acetaminophen Tab [Tylenol] 650 mg PO TID Tamsulosin [Flomax] 0.4 mg PO DAILY Acetaminophen-Codeine 300-30mg [Tylenol w/codeine #3] 1 tab PO TID PRN PRN Reason: Pain Discontinued Meloxicam [Mobic] 15 mg PO DAILY Nystatin 100,000 Unit/gm Powd [Mycostatin Powder] 1 applic TOPICAL TID Discharge Medication List Calcium Citrate/Vitamin D3 [Calcium Citrate - Vit D3 Tab] 1 tab PO BID 12/10/13 [History] Gluc HCl/Ben/Mv/Min Aa/Hb 162 [Glucosamine-Chondroitin Caplet] 2 tab PO DAILY 12/10/13 [History] Multivitamins, Thera [Multivitamin (formulary)] 1 tab PO DAILY 12/10/13 [History] Vitamin B Complex 1 cap PO DAILY 12/10/13 [History] Cetirizine HCl 10 mg PO DAILY 03/14/17 [History] Acetaminophen Tab [Tylenol] 650 mg PO TID 02/22/19 [History] Tamsulosin [Flomax] 0.4 mg PO DAILY 02/22/19 [History] Acetaminophen-Codeine 300-30mg [Tylenol w/codeine #3] 1 tab PO TID PRN 02/27/19 [History] HYDROcodone/APAP 5-325MG [Formoso 5-325] 1 tab PO Q4HR PRN 3 Days #18 tab 03/06/19 [Rx] Follow up Appointment(s)/Referral(s): [facility] [place], [place] [NON-STAFF] - 03/08/19 10:00 am Patient Instructions/Handouts: [facility] Drain Care (ED), Abdominal Binder (DC), Panniculectomy (DC) Activity/Diet/Wound Care/Special Instructions: No lifting over 4 pounds in 4 weeks, April 03, 2019. No bathtub soaks. No shower. No stretching or twisting. Sleep in a recliner. DO NOT REMOVE DRESSINGS. DO NOT REMOVE BINDER. Keep record of CHRISTIAN outputs daily. DO NOT START MOBIC Discharge Disposition: HOME SELF-CARE <Niya Duenas - Last Filed: 03/06/19 17:13> Providers Date of admission: 03/04/19 09:56 Attending physician: Niya Duenas Primary care physician: Nickolas García
[2019-03-06] MEDS: LACTATED RINGERS 1,000 ML IV SCH (13:45)
== END 2019-03-06 15:00 | disposition home or self-care (01) | DRG 607 ==
LOC: 2ORMAIN 09:56 → 4SSUR 18:01
PROVIDERS: ADMIT Surgery Plastic and Reconstructive Surgery; ATTEND Surgery Plastic and Reconstructive Surgery
PROC: 0J9800Z Drainage of Abdomen Subcutaneous Tissue and Fascia with Drainage Device, Open Approach (ICD-10-PCS; 2019-03-04)
PROC: 0HB7XZZ Excision of Abdomen Skin, External Approach (ICD-10-PCS; principal; 2019-03-04 13:10)
DX: M79.3 Panniculitis, unspecified (principal); N13.8 Other obstructive and reflux uropathy; E65 Localized adiposity; G47.33 Obstructive sleep apnea (adult) (pediatric); Z99.89 Dependence on other enabling machines and devices; I11.9 Hypertensive heart disease without heart failure; K21.9 Gastro-esophageal reflux disease without esophagitis; M17.0 Bilateral primary osteoarthritis of knee; N40.1 Benign prostatic hyperplasia with lower urinary tract symptoms; Z79.1 Long term (current) use of non-steroidal anti-inflammatories (NSAID); Z79.899 Other long term (current) drug therapy; Z80.0 Family history of malignant neoplasm of digestive organs; Z86.711 Personal history of pulmonary embolism; Z87.891 Personal history of nicotine dependence; Z90.3 Acquired absence of stomach [part of]; Z96.643 Presence of artificial hip joint, bilateral; Z98.84 Bariatric surgery status; Z68.33 Body mass index [BMI] 33.0-33.9, adult; E55.9 Vitamin D deficiency, unspecified
CPT/HCPCS: 80051; 84132; 85025

== ENCOUNTER → 2019-03-08 | Outpatient (CLI) | payer OTHER ==
--- NOTE | 2019-03-08 10:33 | P.PN ---
Subjective Progress Note Date: 03/08/19 DATE OF SERVICE: 03/08/2019 CHIEF COMPLAINT: Panniculitis HISTORY OF PRESENT ILLNESS: Hector Gray is a 63-year-old gentleman who is status post sleeve gastrectomy in 2011. He is now status post panniculectomy 6 pounds, 03/04/2019. He is POD 4. His pain is controlled. No fevers or chills. His highest weight was 367 pounds. Today he comes in weighing 209 pounds from 212 pounds. He has lost 3 pounds in 1 week. For his height of 5 foot 7-1/2 inches, his ideal body weight is 158 pounds. He has maintained 158 pound weight loss lifetime. Lifetime percent excess weight loss is 76 %. PHYSICAL EXAM: VITAL SIGNS: Height 5 foot 7.5 inches, weight 209 pounds. BMI 32.3 Vital Signs Temp 98.6 F 03/08/19 11:18 Pulse 75 03/08/19 11:18 Resp BP 135/79 03/08/19 11:18 Pulse Ox GENERAL: Well-developed male in no acute distress. HEENT: No scleral icterus. Extraocular movements grossly intact. Hears conversational speech. No nasal drainage. NECK: Supple without lymphadenopathy. CHEST: Nonlabored respirations with equal bilateral excursions. CARDIOVASCULAR: Tachycardic. Distal 2+ pulses. ABDOMEN: External dressing discontinued. Mild skin breakdown at the left thigh from skin bullae rupture. Wound care with chlor prep performed. MUSCULOSKELETAL: No clubbing, cyanosis, or edema. Gross strength 5/5 distal lower extremities. NEURO: No focal or lateralizing signs. Cranial nerves 2 through 12 grossly within normal limits. PSYCH: Appropriate affect. Alert and oriented to person, place and time. SKIN: Good skin turgor. Well perfused. ASSESSMENT: 1. Morbid obesity due to excess calories. 2. Body mass index of 56.8 down to 32.3 3. Status post sleeve gastrectomy. 4. Status post panniculectomy for panniculitis PLAN: 1. Pain controlled. 2. Follow-up in 5 days for dressing changes and wound check.
[2019-03-08 11:24] VITALS: BP 135/79; PULSE 75; TEMP 98.6; BMI 32.2
== END ==
LOC: BARWHC3 09:41
PROVIDERS: ATTEND Surgery Plastic and Reconstructive Surgery
DX: E66.01 Morbid (severe) obesity due to excess calories (principal); Z98.84 Bariatric surgery status; Z98.890 Other specified postprocedural states; Z68.32 Body mass index [BMI] 32.0-32.9, adult
CPT/HCPCS: 99212

== ENCOUNTER → 2019-03-13 | Outpatient (CLI) | payer OTHER ==
--- NOTE | 2019-03-13 14:48 | P.PN ---
Subjective Progress Note Date: 03/13/19 DATE OF SERVICE: 03/13/2019 CHIEF COMPLAINT: Panniculitis HISTORY OF PRESENT ILLNESS: Hector Gray is a 63-year-old gentleman who is status post sleeve gastrectomy in 2011. He is now status post panniculectomy 6 pounds, 03/04/2019. He is 2 weeks out. He has lost another 8 pounds in 2 weeks. No chest pain. Pain is well controlled. His highest weight was 367 pounds. Today he comes in weighing 204 pounds from 209 pounds. He has lost 5 pounds in 9 days. For his height of 5 foot 7-1/2 inches, his ideal body weight is 158 pounds. He has maintained 163 pound weight loss lifetime. Lifetime percent excess weight loss is 78 %. PHYSICAL EXAM: VITAL SIGNS: Height 5 foot 7.5 inches, weight 204 pounds. BMI 31.5 Vital Signs Temp 98.1 F 03/13/19 14:59 Pulse 75 03/13/19 14:59 Resp BP 138/80 03/13/19 14:59 Pulse Ox GENERAL: Well-developed male in no acute distress. HEENT: No scleral icterus. Extraocular movements grossly intact. Hears conversational speech. No nasal drainage. NECK: Supple without lymphadenopathy. CHEST: Nonlabored respirations with equal bilateral excursions. CARDIOVASCULAR: Tachycardic. Distal 2+ pulses. ABDOMEN: No infection. No cellulitis. Dressing changed. Exofin tape removed. Wound prep done. CHRISTIAN serosanguinous over 100 mL daily. Abdominal binder placed snugg. MUSCULOSKELETAL: No clubbing, cyanosis, or edema. Gross strength 5/5 distal lower extremities. NEURO: No focal or lateralizing signs. Cranial nerves 2 through 12 grossly within normal limits. PSYCH: Appropriate affect. Alert and oriented to person, place and time. SKIN: Good skin turgor. Well perfused. ASSESSMENT: 1. Morbid obesity due to excess calories. 2. Body mass index of 56.8 down to 31.5 3. Status post sleeve gastrectomy. 4. Status post panniculectomy for panniculitis PLAN: 1. Follow up in 1 week as JPs are over 100 mL daily 2. Wear abdominal binder for over 4 weeks advised.
[2019-03-13 15:08] VITALS: BP 138/80; PULSE 75; TEMP 98.1; BMI 31.4
== END | disposition home or self-care (01) ==
LOC: BARWHC3 13:40
PROVIDERS: ATTEND Surgery Plastic and Reconstructive Surgery
DX: Z48.817 Encounter for surgical aftercare following surgery on the skin and subcutaneous tissue (principal); E66.01 Morbid (severe) obesity due to excess calories; Z98.890 Other specified postprocedural states; Z98.84 Bariatric surgery status; Z68.31 Body mass index [BMI] 31.0-31.9, adult
CPT/HCPCS: 99212

== ENCOUNTER → 2019-03-21 | Outpatient (CLI) | payer OTHER ==
[2019-03-21 08:29] VITALS: BP 148/84; PULSE 84; TEMP 98.1; BMI 32.3
--- NOTE | 2019-03-21 08:30 | P.PN ---
Subjective Progress Note Date: 03/21/19 DATE OF SERVICE: 03/21/2019 CHIEF COMPLAINT: Panniculitis HISTORY OF PRESENT ILLNESS: Hector Gray is a 64-year-old gentleman who is status post sleeve gastrectomy in 2011. He is now status post panniculectomy 6 pounds, 03/04/2019. He is 3 weeks out. He reports output less than 30 mL per day. He has gained 6 pounds since last visit. Protein intake is over 80 grams daily. His highest weight was 367 pounds. Today he comes in weighing 210 pounds from 204 pounds. He has gained 6 pounds in 8 days. For his height of 5 foot 7-1/2 inches, his ideal body weight is 158 pounds. He has maintained 157 pound weight loss lifetime. Lifetime percent excess weight loss is 75 %. PHYSICAL EXAM: VITAL SIGNS: Height 5 foot 7.5 inches, weight 210 pounds. BMI 32.4 Vital Signs Temp 98.1 F 03/21/19 08:18 Pulse 84 03/21/19 08:18 Resp BP 148/84 03/21/19 08:18 Pulse Ox GENERAL: Well-developed male in no acute distress. HEENT: No scleral icterus. Extraocular movements grossly intact. Hears conversational speech. No nasal drainage. NECK: Supple without lymphadenopathy. CHEST: Nonlabored respirations with equal bilateral excursions. CARDIOVASCULAR: Tachycardic. Distal 2+ pulses. ABDOMEN: Resolved bullae along the left flank. No cellulitis or infection. CHRISTIAN serous. Wound prep completed. MUSCULOSKELETAL: No clubbing, cyanosis, or edema. Gross strength 5/5 distal lower extremities. NEURO: No focal or lateralizing signs. Cranial nerves 2 through 12 grossly wit hin normal limits. PSYCH: Appropriate affect. Alert and oriented to person, place and time. SKIN: Good skin turgor. Well perfused. ASSESSMENT: 1. Morbid obesity due to excess calories. 2. Body mass index of 56.8 down to 32.4 3. Status post sleeve gastrectomy. 4. Status post panniculectomy for panniculitis PLAN: 1. Will need new binder. 2. Will remove CHRISTIAN on next visit 3. Continue protein intake over 80 grams. Objective - Vital Signs Vital signs: Intake & Output 03/20/19 03/21/19 03/21/19 18:59 06:59 18:59 Weight 95.254 kg
== END | disposition home or self-care (01) ==
LOC: BARWHC3 08:01
PROVIDERS: ATTEND Surgery Plastic and Reconstructive Surgery
DX: E66.01 Morbid (severe) obesity due to excess calories (principal); Z68.32 Body mass index [BMI] 32.0-32.9, adult; Z98.84 Bariatric surgery status; Z48.817 Encounter for surgical aftercare following surgery on the skin and subcutaneous tissue
CPT/HCPCS: 99212

== ENCOUNTER → 2019-03-25 | Outpatient (CLI) | payer OTHER ==
[2019-03-25 14:18] VITALS: BP 155/74; PULSE 71; TEMP 98.1; BMI 32.8
--- NOTE | 2019-03-26 20:00 | P.PN ---
Subjective Progress Note Date: 03/25/19 DATE OF SERVICE: 03/25/2019 CHIEF COMPLAINT: Panniculitis HISTORY OF PRESENT ILLNESS: Hector Gray is a 64-year-old gentleman who is status post sleeve gastrectomy in 2011. He is now status post panniculectomy 6 pounds, 03/04/2019. No reports of abdominal pain. No nausea or vomiting. No fevers or chills. No infection. No seroma. He has gained more weight. His highest weight was 367 pounds. Today he comes in weighing 213 pounds from 210 pounds. He has gained 3 pounds in 4 days. For his height of 5 foot 7-1/2 inches, his ideal body weight is 158 pounds. He has maintained 154 pound weight loss lifetime. Lifetime percent excess weight loss is 74 %. PHYSICAL EXAM: VITAL SIGNS: Height 5 foot 7.5 inches, weight 213 pounds. BMI 32.9 Vital Signs Temp 98.1 F 03/25/19 14:12 Pulse 71 03/25/19 14:12 Resp BP 155/74 03/25/19 14:12 Pulse Ox GENERAL: Well-developed male in no acute distress. HEENT: No scleral icterus. Extraocular movements grossly intact. Hears conversational speech. No nasal drainage. NECK: Supple without lymphadenopathy. CHEST: Nonlabored respirations with equal bilateral excursions. CARDIOVASCULAR: Regular rate. Distal 2+ pulses. ABDOMEN: Resolved bullae along the left flank. No cellulitis or infection. CHRISTIAN serous. MUSCULOSKELETAL: No clubbing, cyanosis, or edema. Gross strength 5/5 distal lower extremities. NEURO: No focal or lateralizing signs. Cranial nerves 2 through 12 grossly within normal limits. PSYCH: Appropriate affect. Alert and oriented to person, place and time. SKIN: Good skin turgor. Well perfused. ASSESSMENT: 1. Morbid obesity due to excess calories. 2. Body mass index of 56.8 down to 32.9 3. Status post sleeve gastrectomy. 4. Status post panniculectomy for panniculitis PLAN: 1. CHRISTIAN of the left side removed. 2. Right side CHRISTIAN over 50 mL daily. 3. Recommend remove the right drain in 5 days. 4. Follow up in 5 days. Objective - Vital Signs Vital signs: Vital Signs Temp 98.1 F 03/25/19 14:12 Pulse 71 03/25/19 14:12 Resp BP 155/74 03/25/19 14:12 Pulse Ox
== END | disposition home or self-care (01) ==
LOC: BARWHC3 09:34
PROVIDERS: ATTEND Surgery Plastic and Reconstructive Surgery
DX: Z48.815 Encounter for surgical aftercare following surgery on the digestive system (principal); E66.01 Morbid (severe) obesity due to excess calories; Z68.32 Body mass index [BMI] 32.0-32.9, adult; Z98.84 Bariatric surgery status; Z98.890 Other specified postprocedural states
CPT/HCPCS: 99212

== ENCOUNTER → 2019-03-29 | Outpatient (CLI) | payer OTHER ==
--- NOTE | 2019-03-29 12:03 | P.PN ---
Subjective Progress Note Date: 03/29/19 DATE OF SERVICE: 03/29/2019 CHIEF COMPLAINT: Panniculitis HISTORY OF PRESENT ILLNESS: Hector Gray is a 64-year-old gentleman who is status post sleeve gastrectomy in 2011. He is now status post panniculectomy 6 pounds, 03/04/2019. He is 1 month out. His weight is stable from follow-up 5 days ago. He is not using his binder appropriately. His highest weight was 367 pounds. Today he comes in weighing 213 pounds from 210 pounds. He has gained 3 pounds in 4 days. For his height of 5 foot 7-1/2 inches, his ideal body weight is 158 pounds. He has maintained 154 pound weight loss lifetime. Lifetime percent excess weight loss is 74 %. PHYSICAL EXAM: VITAL SIGNS: Height 5 foot 7.5 inches, weight 213 pounds. BMI 32.9 Vital Signs Temp 97.3 F L 03/29/19 09:53 Pulse 72 03/29/19 09:53 Resp BP 160/92 03/29/19 09:53 Pulse Ox GENERAL: Well-developed male in no acute distress. HEENT: No scleral icterus. Extraocular movements grossly intact. Hears conversational speech. No nasal drainage. NECK: Supple without lymphadenopathy. CHEST: Nonlabored respirations with equal bilateral excursions. CARDIOVASCULAR: Regular rate. Distal 2+ pulses. ABDOMEN: All incisions cleaned. No erythema or cellulitis. CHRISTIAN at bedside 20 mL in 12 hours. CHRISTIAN was discontinued along right side. MUSCULOSKELETAL: No clubbing, cyanosis, or edema. NEURO: No focal or lateralizing signs. Cranial nerves 2 through 12 grossly within normal limits. PSYCH: Appropriate affect. Alert and oriented to person, place and time. SKIN: Good skin turgor. Well perfused. ASSESSMENT: 1. Morbid obesity due to excess calories. 2. Body mass index of 56.8 down to 32.9 3. Status post sleeve gastrectomy. 4. Status post panniculectomy for panniculitis PLAN: 1. Education of abdominal binder reviewed. 2. Last CHRISTIAN along right side removed. 3. Recommend wearing abdominal binder at all times for 24 hours per day. 4. Dressing care also reviewed with surgical dressing placed. 5. Follow-up in 5 days Monday. 6. Additional abdominal binders ordered. Objective - Vital Signs Vital signs: Intake & Output 03/28/19 03/29/19 03/29/19 18:59 06:59 18:59 Weight 96.615 kg
[2019-03-29 12:51] VITALS: BP 160/92; PULSE 72; TEMP 97.3; BMI 32.8
== END ==
LOC: BARWHC3 09:31
PROVIDERS: ATTEND Surgery Plastic and Reconstructive Surgery
DX: E66.01 Morbid (severe) obesity due to excess calories (principal); M79.3 Panniculitis, unspecified; Z68.32 Body mass index [BMI] 32.0-32.9, adult; Z98.84 Bariatric surgery status; Z98.890 Other specified postprocedural states
CPT/HCPCS: 99212

== ENCOUNTER → 2019-04-01 | Outpatient (CLI) | payer OTHER ==
[2019-04-01 15:35] VITALS: BP 151/78; PULSE 72; TEMP 98.2; BMI 32.7
--- NOTE | 2019-04-01 17:11 | P.PN ---
Progress Note - Text Progress Note Date: 04/01/19 Nurse visit. Please see nurse's note
== END | disposition home or self-care (01) ==
LOC: BARWHC3 09:24
PROVIDERS: ATTEND Surgery Plastic and Reconstructive Surgery
DX: Z48.817 Encounter for surgical aftercare following surgery on the skin and subcutaneous tissue (principal); Z87.891 Personal history of nicotine dependence; Z98.84 Bariatric surgery status; Z98.890 Other specified postprocedural states
CPT/HCPCS: 99211

== ENCOUNTER → 2019-04-12 | Outpatient (CLI) | payer OTHER ==
[2019-04-12 10:50] VITALS: BP 149/90; PULSE 87; RESP 16; TEMP 97.8; BMI 33.5
--- NOTE | 2019-04-12 11:21 | P.PN ---
Subjective Progress Note Date: 04/12/19 DATE OF SERVICE: 04/12/2019 CHIEF COMPLAINT: Panniculitis HISTORY OF PRESENT ILLNESS: Hector Gray is a 64-year-old gentleman who is status post sleeve gastrectomy in 2011. He is now status post panniculectomy 6 pounds, 03/04/2019. He is 6 weeks out. He is doing well. He comes in with moderate weight gain over 15+ pounds since his panniculectomy. His highest weight was 367 pounds. Today he comes in weighing 217 pounds from 213 pounds. He has gained 4 pounds in 2 weeks. For his height of 5 foot 7-1/2 inches, his ideal body weight is 158 pounds. He has maintained 150 pound weight loss lifetime. Lifetime percent excess weight loss is 72 %. PHYSICAL EXAM: VITAL SIGNS: Height 5 foot 7.5 inches, weight 217 pounds. BMI 33.5 Vital Signs Temp 97.8 F 04/12/19 10:48 Pulse 87 04/12/19 10:48 Resp 16 04/12/19 10:48 BP 149/90 04/12/19 10:48 Pulse Ox GENERAL: Well-developed male in no acute distress. HEENT: No scleral icterus. Extraocular movements grossly intact. Hears conversational speech. No nasal drainage. NECK: Supple without lymphadenopathy. CHEST: Nonlabored respirations with equal bilateral excursions. CARDIOVASCULAR: Regular rate. Distal 2+ pulses. ABDOMEN: All incisions granulated. No seroma. MUSCULOSKELETAL: No clubbing, cyanosis, or edema. NEURO: No focal or lateralizing signs. Cranial nerves 2 through 12 grossly within normal limits. PSYCH: Appropriate affect. Alert and oriented to person, place and time. SKIN: Good skin turgor. Well perfused. ASSESSMENT: 1. Morbid obesity due to excess calories. 2. Body mass index of 56.8 down to 33.5 3. Status post sleeve gastrectomy. 4. Status post panniculectomy for panniculitis PLAN: 1. Continue to wear abdominal binder for at least 2 months post op 2. He is doing well. 3. Follow up as needed. Objective - Vital Signs Vital signs: Vital Signs Temp 97.8 F 04/12/19 10:48 Pulse 87 04/12/19 10:48 Resp 16 04/12/19 10:48 BP 149/90 04/12/19 10:48 Pulse Ox Intake & Output 04/11/19 04/12/19 04/12/19 18:59 06:59 18:59 Weight 98.43 kg
== END | disposition home or self-care (01) ==
LOC: BARWHC3 09:54
PROVIDERS: ATTEND Surgery Plastic and Reconstructive Surgery
DX: Z48.815 Encounter for surgical aftercare following surgery on the digestive system (principal); E66.01 Morbid (severe) obesity due to excess calories; Z68.33 Body mass index [BMI] 33.0-33.9, adult; Z98.84 Bariatric surgery status; Z98.890 Other specified postprocedural states
CPT/HCPCS: 99211

== ENCOUNTER 2020-02-17 10:24 | Day surgery (SDC) | payer OTHER ==
[2020-02-13 13:04] VITALS: BMI 34.0
[2020-02-17 10:37] VITALS: TEMP 97.6
[2020-02-17] MEDS ORDERED: LACTATED RINGERS 1,000 ML IV ONE (10:45)
[2020-02-17] MEDS ORDERED: PROPOFOL 10 MG/ML 20 ML VIAL IV ONE (11:25)
--- NOTE | 2020-02-17 12:02 | P.PCN ---
Date of Procedure: 02/17/20 Description of Procedure: BRIEF HISTORY: Patient is a 64-year-old male presenting for outpatient colonoscopy for screening for neoplasm the colon. Patient reports family history of colon cancer in his father. Denies any change in bowel habits or blood per rectum. PROCEDURE PERFORMED: Colonoscopy. PREOPERATIVE DIAGNOSIS: Screening for malignant neoplasm colon, the patient reports family history of colon cancer in his father. ESTIMATED BLOOD LOSS: Minimal. IV sedation per Anesthesia. PROCEDURE: After informed consent was obtained, the patient, was brought into the endoscopy unit. IV sedation was administered by Anesthesia under continuous monitoring. Digital rectal examination was normal. Initially the Olympus CF-190 flexible video colonoscope was then inserted in the rectum, gradually advanced into the cecum without any difficulty. Careful examination was performed as the scope was gradually being withdrawn. Ileocecal valve and the appendiceal orifice were visualized and appeared normal. Prep was excellent. Mucosa of the cecum, ascending colon, transverse colon, descending colon, sigmoid colon, and rectum appeared normal. Retroflexion was performed in the rectum and no lesions were seen, low-grade internal hemorrhoids seen. The patient tolerated the procedure well. IMPRESSION: Normal-appearing colon from rectum to cecum. Low-grade internal hemorrhoids. RECOMMENDATIONS: Findings of this examination were discussed with the patient and his family. Okay for diet. Okay for medications. Would recommend repeat colonoscopy in 5 years for family history of colon cancer.
[2020-02-17 12:13] VITALS: BP 123/81; PULSE 61; RESP 17
== END 2020-02-17 13:13 | disposition home or self-care (01) ==
LOC: ORWHC2ENDO 10:24
PROVIDERS: ATTEND Internal Medicine
DX: Z12.11 Encounter for screening for malignant neoplasm of colon (principal); K64.8 Other hemorrhoids; Z80.0 Family history of malignant neoplasm of digestive organs; G47.33 Obstructive sleep apnea (adult) (pediatric); N42.9 Disorder of prostate, unspecified; M19.90 Unspecified osteoarthritis, unspecified site; Z86.711 Personal history of pulmonary embolism; Z79.1 Long term (current) use of non-steroidal anti-inflammatories (NSAID); Z79.899 Other long term (current) drug therapy; Z99.89 Dependence on other enabling machines and devices; Z98.890 Other specified postprocedural states; Z87.891 Personal history of nicotine dependence
CPT/HCPCS: J2704; G0105

== ENCOUNTER 2021-12-22 19:54 | Observation (INO) | payer MEDICARE, OTHER ==
[2021-12-22 20:20] VITALS: TEMP 97.9
[2021-12-22] MEDS ORDERED: SODIUM CHLORIDE 0.9% 1,000 ML IV ONE (20:38)
--- NOTE | 2021-12-22 20:42 | ED ---
General Adult HPI - General Chief complaint: Altered Mental Status Stated complaint: Abdominal Pain Time Seen by Provider: 12/22/21 20:13 Source: patient, EMS, RN notes reviewed Mode of arrival: EMS Limitations: no limitations - History of Present Illness Initial comments: This is a pleasant 66-year-old male with a history of obstructive sleep apnea and recurrent back pain. Patient presented to [facility] when asked, [facility] emergency department with right flank pain which started this morning. Apparently the patient thought he might be dehydrated so he drank about 2 gallons of water prior to arrival. Patient also took a Tylenol and [place]. Patient was eventually diagnosed with hyponatremia, flank pain, nausea and vomiting, and metabolic encephalopathy at [facility]. No headache, no fever or chills, no changes in vision or hearing, no sore throat or difficulty with speech, no neck pain, no chest pain or shortness of breath, no abdominal pain, no nausea or vomiting, no changes in urination or bowel movements, no numbness or tingling, no extremity pain, no skin rashes or lesions. Patient does have some confusion. Nonsmoker, no alcohol or drug abuse. PATIENT being sent to the emergency Department via transfer from [facility] stand-alone ER after being diagnosed with nausea, vomiting, metabolic encephalopathy and hyponatremia. - Related Data Home Medications Medication Instructions Recorded Confirmed Tamsulosin [Flomax] 0.4 mg PO DAILY 02/22/19 02/13/20 Acetaminophen [Tylenol Arthritis] 650 mg PO TID 02/13/20 02/13/20 Meloxicam [Mobic] 15 mg PO DAILY 02/13/20 02/13/20 Allergies Allergy/AdvReac Type Severity Reaction Status Date / Time No Known Allergies Allergy Verified 02/17/20 10:34 Review of Systems ROS Statement: Those systems with pertinent positive or pertinent negative responses have been documented in the HPI. ROS Other: All systems not noted in ROS Statement are negative. Past Medical History Past Medical History: Musculoskeletal Disorder, Osteoarthritis (OA), Prostate Disorder, Pulmonary Embolus (PE), Sleep Apnea/CPAP/BIPAP Additional Past Medical History / Comment(s): uses CPAP, father had colon cancer. PE >20 yrs. ago, back pain, pinched nerve w/sciatic problem History of Any Multi-Drug Resistant Organisms: None Reported Past Surgical History: Bariatric Surgery, Joint Replacement Additional Past Surgical History / Comment(s): carla hip replacements, Gastric Sleeve, nasal balloon sinuplasty couple months ago Past Anesthesia/Blood Transfusion Reactions: No Reported Reaction Past Psychological History: No Psychological Hx Reported Smoking Status: Former smoker - Past Family History Father Family Medical History: Cancer Additional Family Medical History / Comment(s): Colon cancer. General Exam Limitations: no limitations General appearance: alert, in no apparent distress, obese Head exam: Present: atraumatic, normocephalic, normal inspection Eye exam: Present: normal appearance, PERRL, EOMI. Absent: scleral icterus, conjunctival injection, periorbital swelling ENT exam: Present: normal exam, mucous membranes moist. Absent: mucous membranes dry Neck exam: Present: normal inspection. Absent: tenderness, meningismus, lymphadenopathy Respiratory exam: Present: normal lung sounds bilaterally. Absent: respiratory distress, wheezes, rales, rhonchi, stridor Cardiovascular Exam: Present: regular rate, normal rhythm, normal heart sounds. Absent: systolic murmur, diastolic murmur, rubs, gallop, clicks GI/Abdominal exam: Present: soft, normal bowel sounds. Absent: distended, tenderness, guarding, rebound, rigid Extremities exam: Present: normal inspection, full ROM, normal capillary refill. Absent: tenderness, pedal edema, joint swelling, calf tenderness Back exam: Present: normal inspection Neurological exam: Present: alert (Patient is alert and oriented but does have some level of confusion stating that he feels "off."), oriented X3, CN II-XII intact, normal gait, other (No focal neurologic deficits. Cranial nerves II through XII intact). Absent: altered, abnormal gait, motor sensory deficit Psychiatric exam: Present: normal affect, normal mood Skin exam: Present: warm, dry, intact, normal color. Absent: rash Course Vital Signs 12/22/21 12/22/21 20:03 20:59 Temperature 97.9 F Pulse Rate 59 L 74 Respiratory 16 Rate Blood Pressure 138/81 130/94 O2 Sat by Pulse 98 Oximetry - Consultations Consultation #1: Case discussed was sound physician group states that the admission of the patient. EKG Findings - EKG Comments: EKG Findings:: EKG done at 2015 the ED attending physician reveals sinus rhythm with a rate of 61, normal intervals, normal axis, no acute ST or T- wave changes. Medical Decision Making - Medical Decision Making Presents via transfer for hyponatremia and metabolic encephalopathy. Computed tomography scan done at the other facility shows fatty liver disease high attenuation material noted in the gallbladder. There was no evidence of hydronephrosis or ureteral stone. Patient also had a CAT scan of his head which was free of any acute intracranial process ultrasound of the right upper quadrant showed increased echogenicity of the liver with underlying hepatocellular disease most likely due to fatty infiltration. Gallbladder was unremarkable. CMP revealed a sodium of 126. Calcium 8.2, protein 6.1, globulin 2.0 chloride 96, remainder of the CMP was normal urinalysis essentially unremarkable. CBC unremarkable. The case was discussed in detail with ED attending physician. Presentation, findings, treatment plan discussed in detail. Supervising physician, Dr. Junior - Lab Data Lab Results 12/22/21 Range/Units 20:55 Ammonia <9 (<30) umol/L Disposition Clinical Impression: Acute metabolic encephalopathy, Hyponatremia, Acute right flank pain, Confusion Disposition: ADMITTED IP TO THIS HOSP Condition: Stable Referrals: Nickolas García MD [Primary Care Provider] - 1-2 days Time of Disposition: 21:19 Decision to Admit Reason: Admit from EC Decision Time: 21:19
[2021-12-22 21:18] LABS: Basophils % (A) 0 %; Eosinophils # (A) 0.1 k/uL (0-0.7); Eosinophils % (A) 1 %; HCT 36.5 % (39.0-53.0); HGB 12.6 gm/dL (13.0-17.5); Lymphocytes # (A) 1.4 k/uL (1.0-4.8); Lymphocytes % (A) 23 %; MCH 31.3 pg (25.0-35.0); MCHC 34.6 g/dL (31.0-37.0); MCV 90.6 fL (80.0-100.0); Mean Platelet Volume 7.6; Monocytes # (A) 0.4 k/uL (0-1.0); Monocytes % (A) 6 %; Neutrophils # (A) 4.2 k/uL (1.3-7.7); Neutrophils % (A) 68 %; Platelet Count 192 k/uL (150-450); RBC 4.03 m/uL (4.30-5.90); RDW 13.5 % (11.5-15.5); WBC 6.1 k/uL (3.8-10.6)
[2021-12-22 21:29] LABS: ALT 19 U/L (4-49); AST 28 U/L (17-59); African American GFR (CKD) >90 (>60 ml/min/1.73 sqM); Albumin 3.6 g/dL (3.5-5.0); Alkaline Phosphatase 54 U/L (38-126); Anion Gap 7 mmol/L; Blood Urea Nitrogen 18 mg/dL (9-20); Calcium 8.3 mg/dL (8.4-10.2); Carbon Dioxide 22 mmol/L (22-30); Chloride 97 mmol/L (98-107); Glucose 101 mg/dL (74-99); Non-African American GFR(CKD) >90 (>60 ml/min/1.73 sqM); Sodium 126 mmol/L (137-145); Total Bilirubin 0.7 mg/dL (0.2-1.3); Total Protein 5.7 g/dL (6.3-8.2)
[2021-12-22 21:34] LABS: Alcohol <10 mg/dL
[2021-12-22] MEDS ORDERED: NALOXONE 0.4 MG/ML 1 ML VIAL IV PRN (21:37)
[2021-12-22] MEDS ORDERED: ONDANSETRON 4 MG/2 ML VIAL IVP PRN (21:37)
[2021-12-22] MEDS ORDERED: ACETAMINOPHEN TAB 325 MG TAB PO PRN (21:37)
[2021-12-22 21:39] LABS: INR 1.1 (<1.2); Prothrombin Time 11.9 sec (9.0-12.0)
[2021-12-22 21:50] LABS: Partial Thromboplastin Time 19.7 sec (22.0-30.0)
[2021-12-22 22:09] LABS: Appearance,Urine Clear (Clear); Bilirubin,Urine Negative (Negative); Blood,Urine Negative (Negative); Color,Urine Colorless; Glucose,Urine (UA) Negative (Negative); Ketones,Urine Negative (Negative); Leukocyte Esterase,Urine Negative (Negative); Nitrite,Urine Negative (Negative); PH, Urine 6.5 (5.0-8.0); Protein,Urine Negative (Negative); Specific Gravity,Urine 1.002 (1.001-1.035); Urobilinogen,Urine <2.0 mg/dL (<2.0)
[2021-12-22 22:20] LABS: Amphetamine Screen,Urine Not Detected (NotDetected); Barbiturate Screen,Urine Not Detected (NotDetected); Benzodiazepines Screen,Urine Not Detected (NotDetected); Cocaine Screen,Urine Not Detected (NotDetected); Methadone Screen, Urine Not Detected (NotDetected); Opiate Screen,Urine Detected (NotDetected); Oxycodone Screen, Urine Not Detected (NotDetected); Phencyclidine Screen,Urine Not Detected (NotDetected); Tricyclic Antidepressant,Urine Not Detected (NotDetected); Urn Cannabinoid Scrn Not Detected (NotDetected)
[2021-12-22] MEDS: SODIUM CHLORIDE 0.9% 1,000 ML IV SCH (23:16)
--- NOTE | 2021-12-23 03:32 | P.HPIM ---
History of Present Illness H&P Date: 12/22/21 Chief Complaint: Confusion 66-year-old male with history of obstructive sleep apnea and BPH Patient is a transfer from [facility] where he presented for confusion he reports that he was baseline status of health up until yesterday today when he woke up he didn't feel normally lives alone he felt that he has severe back pain and was slightly confused decided to go to the hospital for evaluation over there he was diagnosed with acute metabolic encephalopathy seems like he was having back pain thought he was dehydrated he denies any history of renal stones so he drank 2 gallons of water and went to the hospital for evaluation over there CT of the brain showed no acute pathology CT of the abdomen showed no renal stones no hydronephrosis but did show some fatty liver infiltrates. Blood work showed hyponatremia patient was diagnosed with acute metabolic encephalopathy was sent for to our facility for further treatment Currently patient feels back at to his baseline denies any headache trouble breathing nausea vomiting tinnitus, denies any focal neuro deficits abdominal pain diarrhea back pain changes in urinary or bowel habits denies any GI bleeding. He clarifies that he always have difficulty talking to people with finding words he finds it easier to write down things and this is his baseline all his life Review of Systems Pertinent positives as noted in HPI. All other systems were reviewed and are negative Past Medical History Past Medical History: Musculoskeletal Disorder, Osteoarthritis (OA), Prostate Disorder, Pulmonary Embolus (PE), Sleep Apnea/CPAP/BIPAP Additional Past Medical History / Comment(s): uses CPAP, father had colon cancer. PE >20 yrs. ago, back pain, pinched nerve w/sciatic problem History of Any Multi-Drug Resistant Organisms: None Reported Past Surgical History: Bariatric Surgery, Joint Replacement Additional Past Surgical History / Comment(s): carla hip replacements, Gastric Sleeve, nasal balloon sinuplasty couple months ago Past Anesthesia/Blood Transfusion Reactions: No Reported Reaction Past Psychological History: No Psychological Hx Reported Smoking Status: Former smoker - Past Family History Father Family Medical History: Cancer Additional Family Medical History / Comment(s): Colon cancer. Medications and Allergies Home Medications Medication Instructions Recorded Confirmed Type Meloxicam [Mobic] 15 mg PO DAILY 02/13/20 12/22/21 History Acetaminophen [Tylenol Extra 1,000 mg PO TID 12/22/21 12/22/21 History Strength] Alfuzosin HCl [Alfuzosin HCl ER] 10 mg PO HS 12/22/21 12/22/21 History HYDROcodone/APAP 5-325MG [[place] 0.5 tab PO DAILY PRN 12/22/21 12/22/21 History 5-325] Allergies Allergy/AdvReac Type Severity Reaction Status Date / Time No Known Allergies Allergy Verified 12/22/21 22:04 Physical Exam Vitals: Vital Signs Temp Pulse Resp BP Pulse Ox 12/22/21 20:59 74 130/94 12/22/21 20:03 97.9 F 59 L 16 138/81 98 Intake and Output 12/22/21 12/22/21 12/22/21 06:59 14:59 22:59 Other: Weight 109.769 kg Constitutional: No acute distress, conversant, pleasant Eyes: Anicteric sclerae, moist conjunctiva, Pupils equal round reactive to light ENMT: NC/AT Oropharynx clear, no erythema, or exudates Neck: Supple, FROM, no masses, or JVD No carotid bruits No thyromegaly Lungs: Clear to auscultation Clear to percussion Normal respiratory effort, no accessory muscle use Cardiovascular: Heart regular in rate and rhythm, No murmurs, gallops, or rubs No peripheral edema Abdominal: Soft Nontender, no guarding, rebound or rigidity Abdomen moving with respiration Normoactive bowel sounds No hepatomegaly, No splenomegaly No palpable mass No abdominal wall hernia noted Skin: Normal temperature, tone, texture, turgor No induration No subcutaneous nodules No rash, lesions No ulcers Extremities: No digital cyanosis No clubbing Pedal pulses intact and symmetrical Radial pulses intact and symmetrical No calf tenderness Psychiatric: Alert and oriented to person, place and time Appropriate affect fair judgement Neuro Muscles Strength 5/5 in all 4 extremities Sensation to light touch grossly present throughout Cranial nerves II-XII grossly intact No focal sensory deficits Lymphatics: no palpable cervical or supraclavicular , or inguinal lymph nodes Results CBC & Chem 7: 12/22/21 20:59 12/22/21 20:59 Labs: Abnormal Lab Results - Last 24 Hours (Table) 12/22/21 12/22/21 12/22/21 Range/Units 20:59 20:59 20:59 RBC 4.03 L (4.30-5.90) m/uL Hgb 12.6 L (13.0-17.5) gm/dL Hct 36.5 L (39.0-53.0) % APTT 19.7 L (22.0-30.0) sec Sodium 126 L (137-145) mmol/L Chloride 97 L (98-107) mmol/L Glucose 101 H (74-99) mg/dL Calcium 8.3 L (8.4-10.2) mg/dL Total Protein 5.7 L (6.3-8.2) g/dL Urine Opiates Screen (NotDetected) 12/22/21 Range/Units 21:50 RBC (4.30-5.90) m/uL Hgb (13.0-17.5) gm/dL Hct (39.0-53.0) % APTT (22.0-30.0) sec Sodium (137-145) mmol/L Chloride (98-107) mmol/L Glucose (74-99) mg/dL Calcium (8.4-10.2) mg/dL Total Protein (6.3-8.2) g/dL Urine Opiates Screen Detected H (NotDetected) Assessment and Plan Assessment: Hyponatremia Possible dehydration IV fluid hydration with normal saline Monitor sodium level Acute metabolic encephalopathy resolved Fall precautions Follow-up morning labs Chronic conditions Obstructive sleep apnea encouraged to use CPAP Chronic back pain when necessary pain medications Tylenol and [place] [facility] done at the other facility CT of the brain and CT of the abdomen both reported showing no acute abnormalities DVT prophylaxis heparin subcu 3 times a day Full code
[2021-12-23 04:30] LABS: African American GFR (CKD) >90 (>60 ml/min/1.73 sqM); Anion Gap 4 mmol/L; Blood Urea Nitrogen 16 mg/dL (9-20); Calcium 8.8 mg/dL (8.4-10.2); Carbon Dioxide 23 mmol/L (22-30); Chloride 106 mmol/L (98-107); Glucose 94 mg/dL (74-99); Magnesium 1.4 mg/dL (1.6-2.3); Non-African American GFR(CKD) >90 (>60 ml/min/1.73 sqM); Potassium 4.5 mmol/L (3.5-5.1); Sodium 133 mmol/L (137-145)
[2021-12-23] MEDS: HEPARIN SODIUM,PORCINE/PF 5,000 UNIT/0.5 ML SYRINGE SQ SCH ×3 (06:23→15:41)
[2021-12-23 08:51] VITALS: RESP 18
[2021-12-23 09:05] LABS: Basophils # (A) 0.02 X 10*3/uL (0.00-0.10); Basophils % (A) 0.4 %; Eosinophils # (A) 0.13 X 10*3/uL (0.04-0.35); Eosinophils % (A) 2.6 %; HCT 38.5 % (39.6-50.0); HGB 12.6 g/dL (13.0-17.0); Immature Grans, Automated 0.4 %; Lymphocytes # (A) 1.62 X 10*3/uL (0.90-5.00); Lymphocytes % (A) 32.1 %; MCHC 32.7 g/dL (32.0-37.0); MCV 88.7 fL (80.0-97.0); Mean Platelet Volume 10.4 fL (9.5-12.2); Monocytes # (A) 0.56 X 10*3/uL (0.20-1.00); Monocytes % (A) 11.1 %; NRBC Per 100 WBC 0 /100 WBCS (0.0-0.0); Neutrophils % (A) 53.4 %; Platelet Count 223 X 10*3/uL (140-440); RBC 4.34 X 10*6/uL (4.40-5.60); RDW 13.2 % (11.5-14.5); WBC 5.05 X 10*3/uL (4.50-10.00)
[2021-12-23] MEDS: SODIUM CHLORIDE 0.9% 1,000 ML IV SCH (11:22)
[2021-12-23 14:26] VITALS: PULSE 82
--- NOTE | 2021-12-23 15:43 | P.DS ---
Providers Date of admission: 12/22/21 21:57 Expected date of discharge: 12/23/21 Attending physician: Farzana Chaidez MD Primary care physician: Nickolas García Hospital Course: Discharge Diagnosis: Metabolic encephalopathy secondary to hyponatremia Hyponatremia secondary to polydipsia Obstructive sleep apnea Chronic back pain Hospital Course: Patient is a 66-year-old male with a past medical history of obstructive sleep apnea and BPH who is a transfer from [facility] emergency department for metabolic encephalopathy due to hyponatremia. Patient states that the day before he went to go see his PCP and had his urine checked and was told by his PCP that he is dehydrated so patient went home and drank 2 gallons of water. He then felt confused so went to the [place] emergency room. He was found to have low sodium so he was then transferred to our facility. In our ED department patient's sodium was 126. Patient was started on normal saline fluids. The following day his sodium was 133. Patient's mental status was back to baseline and is feeling well. He was looking forward to going home. Patient was counseled on drinking adequate fluids and not to drink excess fluids. Patient seen and examined at bedside.[] Vital signs reviewed and stable. General: [non toxic], [no distress], [appears at stated age] Derm: [warm], [dry] Head: [atraumatic], [normocephalic], [symmetric] Eyes: [EOMI], [no lid lag], [anicteric sclera] Mouth: [no lip lesion], [mucus membranes moist] Cardiovascular: [S1S2 reg], [no murmur], [positive posterior tibial pulse bilateral], Lungs: [CTA bilateral], [no rhonchi, no rales] , [no accessory muscle use] Abdominal: [soft], [ nontender to palpation], [no guarding], [no appreciable organomegaly] Ext: [no gross muscle atrophy], [no edema], [no contractures] Neuro: [ CN II-XI grossly intact], [no focal neuro deficits] Psych: [Alert], [oriented], [appropriate affect] A total of [33] minutes of time were spent preparing this complex discharge summary . Patient Condition at Discharge: Stable Plan - Discharge Summary New Discharge Prescriptions: No Action Meloxicam [Mobic] 15 mg PO DAILY HYDROcodone/APAP 5-325MG [[place] 5-325] 0.5 tab PO DAILY PRN PRN Reason: Pain Alfuzosin HCl [Alfuzosin HCl ER] 10 mg PO HS Acetaminophen [Tylenol Extra Strength] 1,000 mg PO TID Discharge Medication List Meloxicam [Mobic] 15 mg PO DAILY 02/13/20 [History] Acetaminophen [Tylenol Extra Strength] 1,000 mg PO TID 12/22/21 [History] Alfuzosin HCl [Alfuzosin HCl ER] 10 mg PO HS 12/22/21 [History] HYDROcodone/APAP 5-325MG [[place] 5-325] 0.5 tab PO DAILY PRN 12/22/21 [History] Follow up Appointment(s)/Referral(s): Nickolas García MD [Primary Care Provider] - 1-2 days
[2021-12-23 16:31] VITALS: BP 148/84
== END 2021-12-23 16:31 | disposition home or self-care (01) ==
LOC: EC 19:54 → INTOOBSV 21:57 → 5NMEDONC 21:57 → UNDODISIN 12-23 16:31
PROVIDERS: ADMIT Internal Medicine; ATTEND Internal Medicine
DX: E87.1 Hypo-osmolality and hyponatremia (principal); G93.41 Metabolic encephalopathy; G47.33 Obstructive sleep apnea (adult) (pediatric); N40.0 Benign prostatic hyperplasia without lower urinary tract symptoms; G89.29 Other chronic pain; M54.9 Dorsalgia, unspecified; M54.30 Sciatica, unspecified side; R63.1 Polydipsia; K76.0 Fatty (change of) liver, not elsewhere classified; M19.90 Unspecified osteoarthritis, unspecified site; Z79.1 Long term (current) use of non-steroidal anti-inflammatories (NSAID); Z79.899 Other long term (current) drug therapy; Z87.891 Personal history of nicotine dependence; Z86.711 Personal history of pulmonary embolism; Z98.84 Bariatric surgery status; Z96.643 Presence of artificial hip joint, bilateral; Z98.890 Other specified postprocedural states; Z80.0 Family history of malignant neoplasm of digestive organs
CPT/HCPCS: 96360; 96361 ×2; 96372; 99285; 36415; 93005; 80053; 80048; 82140; 83735; 84484; 85025 ×2; 85610; 85730; 81003; 80306; G0378 ×2; G0480; J1644; 80320